=== PATIENT | female | born 1970 | race African-American/Black ===

== ENCOUNTER 2016-05-13 10:41 | Inpatient (IN) | payer OTHER ==
[2016-05-13 11:36] VITALS: BMI 31.4
--- NOTE | 2016-05-13 13:48 | HP ---
CIWA Score - CIWA Score Nausea/Vomitin (DIARHEA) Muscle Tremors: 4-Moderate,w/Arms Extend Anxiety: 4-Mod. Anxious/Guarded Agitation: 4-Moderately Restless Paroxysmal Sweats: 1-Minimal Palms Moist Orientation: 0-Oriented Tacttile Disturbances: 3-Moderate Itch/Numb/Burn Auditory Disturbances: 0-None Visual Disturbances: 0-None Headache: 1-Very Mild CIWA-Ar Total Score: 22 Admission ROS BHS - HPI Chief Complaint: DETOX TX FOR ALCOHOL DEPENDENCE Allergies/Adverse Reactions: Allergies Allergy/AdvReac Type Severity Reaction Status Date / Time No Known Allergies Allergy Verified 05/13/16 12:43 History of Present Illness: 45 Y/O AA/FEMALE WITH A HX OF ALCOHOL AND CACK/COCAINE DEPENDENCE SEEKING DETOX TX Exam Limitations: No Limitations - Ebola screening Have you traveled outside of the country in the last 21 days: No Have you had contact with anyone from an Ebola affected area: No Have you been sick,other than usual withdrawal symptoms: No Do you have a fever: No - Review of Systems Constitutional: Chills, Loss of Appetite, Night Sweats, Changes in sleep EENT: reports: Blurred Vision, Dental Problems (MISSING TEETH. UPPER DENTURES) Respiratory: reports: Shortness of Breath, Wheezing (ON MDI) GI: reports: Diarrhea, Poor Appetite, Poor Fluid Intake : reports: No Symptoms Reported Musculoskeletal: reports: Back Pain, Joint Pain, Muscle Pain Integumentary: reports: Dryness Neuro: reports: Headache, Tremors, Unsteady Gait, Dizziness Endocrine: reports: No Symptoms Reported Hematology: reports: Anemia Psychiatric: reports: Orientated x3, Anxious, Depressed Other Systems: Reviewed and Negative Patient History - Patient Medical History Hx Anemia: Yes Hx Asthma: Yes Hx Chronic Obstructive Pulmonary Disease (COPD): No Hx Cardiac Disorders: No Hx Hypertension: No Hx Hypercholesterolemia: No HX Cerebrovascular Accident: No Hx Seizures: No Hx Diabetes: Yes (Type II DM-ON METFORMIN AND GLYBURIDE) Hx Gastrointestinal Disorders: No Hx Genitourinary Disorders: No Hx Sexually Transmitted Disorders: No Hx Renal Disease (ESRD): No Hx Human Immunodeficiency Virus (HIV): No Hx Hepatitis C: No Hx Depression: Yes Hx Suicide Attempt: No Hx Schizophrenia: No - Patient Surgical History Past Surgical History: Yes Hx Neurologic Surgery: No Hx Cataract Extraction: No Hx Cardiac Surgery: No Hx Lung Surgery: No Hx Breast Surgery: No Hx Breast Biopsy: No Hx Abdominal Surgery: No Hx Appendectomy: No Hx Cholecystectomy: No Hx Genitourinary Surgery: No Hx Section: Yes (IN 2000) Hx Orthopedic Surgery: No Hx Hysterectomy: Yes (1999, total) Other Surgical History: L shoulder sx in 2012 Anesthesia Reaction: No - PPD History Previous Implant?: Yes Documented Results: Negative w/o proof Implanted On Prior [facility] Admission?: No Date: 07/06/11 PPD to be Administered?: Yes - Reproductive History Patient is a Female of Child Bearing Age (11 -55 yrs old): Yes (HX HYSTERECTOMY 2000) Last Menstrual Period: 03/25/00 Patient : No - Smoking Cessation Smoking history: Current every day smoker Have you smoked in the past 12 months: Yes Aproximately how many cigarettes per day: 20 Cigars Per Day: 0 Hx Chewing Tobacco Use: No Initiated information on smoking cessation: Yes 'Breaking Loose' booklet given: 05/13/16 - Substance & Tx. History Hx Alcohol Use: Yes (VODKA) Hx Substance Use: Yes (CRACK) Substance Use Type: Alcohol, Cocaine - Substances Abused Alcohol Route: Oral Frequency: Daily Amount used: FIFTH OF VODKA Age of first use: 16 Date of Last Use: 05/13/16 Crack Route: Smoking Frequency: Daily Amount used: $50-100 Age of first use: 32 Date of Last Use: 05/13/16 Family Disease History - Family Disease History Family History: Denies Admission Physical Exam BHS - Vital Signs Vital Signs: Vital Signs - 24 hr 05/13/16 11:34 Temperature 97.3 F L Pulse Rate 87 Respiratory 18 Rate Blood Pressure 130/71 - Physical General Appearance: Yes: Moderate Distress, Irritable, Anxious, Other (DROWSY BUT EASILY AROUSABLE.) HEENTM: Yes: EOMI, Normocephalic, DAVID, Pharynx Normal Respiratory: Yes: Chest Non-Tender, Lungs Clear, Normal Breath Sounds, No Respiratory Distress Neck: Yes: Supple, Trachea in good position Breast: Yes: Breast Exam Deferred Cardiology: Yes: Regular Rhythm, Regular Rate, S1, S2 Abdominal: Yes: Normal Bowel Sounds, Non Tender, Soft, Protuberent Genitourinary: Yes: Other (N/C) Back: Yes: Within Normal Limits Musculoskeletal: Yes: full range of Motion, Gait Steady Extremities: Yes: Normal Range of Motion, Non-Tender 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 NML intact, Fully Oriented, Alert Integumentary: Yes: Dry, Warm Lymphatic: Yes: Within Normal Limits - Diagnostic (1) Alcohol dependence with uncomplicated withdrawal Current Visit: Yes Status: Acute (2) Cocaine dependence, uncomplicated Current Visit: Yes Status: Acute (3) Type 2 diabetes mellitus Current Visit: Yes Status: Chronic Qualifiers: Diabetes mellitus complication status: without complication (4) History of anemia Current Visit: Yes Status: Suspected (5) History of asthma Current Visit: Yes Status: Chronic Cleared for Admission [facility] - Detox or Rehab [facility] Level of Care: Medically Managed Detox Regimen/Protocol: Librium [facility] Breath Alcohol Content Breath Alcohol Content: 0 Urine Pregancy Test - Result Urine Test Results: Negative- NO Line Present Urine Drug Screen - Results Drug Screen Negative: No Urine Drug Screen Results: MADHAV-Cocaine
[2016-05-13] MEDS ORDERED: MAG HYDROX/AL HYDROX/SIMETH 30 ML UNIT-DOSE CUP PO PRN (14:01)
[2016-05-13] MEDS ORDERED: LOPERAMIDE HCL 2 MG CAPSULE PO PRN (14:01)
[2016-05-13] MEDS ORDERED: MAGNESIUM HYDROX 2400MG/30ML ORAL SUSPENSION 30 ML CUP PO PRN (14:01)
[2016-05-13] MEDS ORDERED: chlordiazePOXIDE HCL 25 MG CAPSULE PO PRN (14:01)
[2016-05-13] MEDS ORDERED: MAGNESIUM CITRATE 300 ML BOTTLE PO PRN (14:01)
[2016-05-13] MEDS ORDERED: P-EPHED 60MG/TRIPROLIDI 2.5MG TABLET PO PRN (14:01)
[2016-05-13] MEDS ORDERED: hydrOXYzine PAMOATE 25 MG CAPSULE (FP) PO PRN (14:01)
[2016-05-13] MEDS ORDERED: guaiFENesin/D-METHORPHAN HB 10 ML UNIT-DOSE CUPS PO PRN (14:01)
[2016-05-13] MEDS ORDERED: MENTHOL/PHENOL 1 EACH UD MM PRN (14:01)
[2016-05-13] MEDS ORDERED: IBUPROFEN 400 MG TABLET (FP) PO PRN (14:01)
[2016-05-13] MEDS ORDERED: diphenhydrAMINE HCL 50 MG CAPSULE PO PRN (14:01)
[2016-05-13] MEDS ORDERED: ACETAMINOPHEN 325 MG TABLET (FP) PO PRN (14:01)
[2016-05-13 14:17] LABS: HIV 1 & 2 AB NEGATIVE; HIV 1 AGp24 NEGATIVE
[2016-05-13] MEDS: NICOTINE 21 MG/24 HOURS TOPICAL PATCH TD SCH (14:37)
[2016-05-13 16:53] LABS: URINE APPEARANCE CLOUDY; URINE BILIRUBIN NEGATIVE (NEGATIVE); URINE COLOR YELLOW; URINE GLUCOSE (UA) 3+ (NEGATIVE); URINE KETONE TRACE (NEGATIVE); URINE NITRITE POSITIVE (NEGATIVE); URINE PROTEIN NEGATIVE (NEGATIVE); URINE UROBILINOGEN NEGATIVE E.U./dl (0.2-1.0)
[2016-05-13] MEDS: INSULIN SLIDING SCALE (NOVOLOG) 1 VIAL SQ SCH (16:54)
[2016-05-13] MEDS ORDERED: INSULIN (NOVOLOG) ASPART 100 UNITS/ML 10ML VIAL ONE (16:57)
[2016-05-13] MEDS: metFORMIN HCL 500 MG TABLET (FP) PO SCH (16:58)
[2016-05-13 17:33] LABS: URINE BLOOD 1+ (NEGATIVE); URINE LEUK ESTERASE 2+ (NEGATIVE)
[2016-05-13 17:44] LABS: URINE BACTERIA MANY /hpf (NONE SEEN); URINE MUCUS FEW; URINE RBC 18 /hpf (0-3); URINE WBC 32 /hpf (3-5)
[2016-05-13] MEDS: chlordiazePOXIDE HCL 25 MG CAPSULE PO SCH ×2 (17:53→22:39)
[2016-05-13] MEDS: THIAMINE HCL 100 MG TABLET (FP) PO SCH (22:10)
[2016-05-14] MEDS: chlordiazePOXIDE HCL 25 MG CAPSULE PO SCH ×4 (05:35→22:26)
[2016-05-14] MEDS: metFORMIN HCL 500 MG TABLET (FP) PO SCH ×2 (07:24→17:32)
[2016-05-14] MEDS: INSULIN SLIDING SCALE (NOVOLOG) 1 VIAL SQ SCH ×2 (07:24→17:30)
[2016-05-14 10:10] LABS: MCH 30.7 pg (25.7-33.7); MCHC 33.3 g/dl (32.0-36.0); MEAN CELL VOLUME 92.1 fl (80-96); PLATELET COUNT 265 K/MM3 (134-434)
[2016-05-14] MEDS: PRENATAL VITAMINS W/ FOLIC ACID TABLET (FP) PO SCH (10:20)
[2016-05-14] MEDS: NICOTINE 21 MG/24 HOURS TOPICAL PATCH TD SCH (10:20)
[2016-05-14] MEDS: glyBURIDE 2.5 MG TABLET (FP) PO SCH (10:21)
[2016-05-14 11:04] LABS: BILIRUBIN,TOTAL 0.3 mg/dL (0.2-1.0); TOT PROT 7.4 g/dl (6.4-8.2)
[2016-05-14 11:41] LABS: SICKLE CELL SCREEN NEGATIVE (NEGATIVE)
--- NOTE | 2016-05-14 16:12 | EKG ---
Test Reason : Blood Pressure : / mmHG Vent. Rate : 080 BPM Atrial Rate : 080 BPM P-R Int : 170 ms QRS Dur : 088 ms QT Int : 400 ms P-R-T Axes : 052 000 007 degrees QTc Int : 461 ms NORMAL SINUS RHYTHM VOLTAGE CRITERIA FOR LEFT VENTRICULAR HYPERTROPHY CANNOT RULE OUT SEPTAL INFARCT , AGE UNDETERMINED ABNORMAL ECG NO PREVIOUS ECGS AVAILABLE Confirmed by REGINE OLSEN MD ([id number]) on 05/14/2016 4:12:32 PM Referred By: Confirmed By:REGINE OLSEN MD
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
--- NOTE | 2016-05-14 20:02 | PN ---
S Progress Note Note: received nurse call finger stick 92 patient wants to skip dinner hold metformin 1000 mg one dose continue detox
--- NOTE | 2016-05-14 21:46 | PN ---
BHS Progress Note Note: RECEIVED NURSE CALL PATIENT REQUESTS NICOTINE GUM NICOTINE GUM ORDERED CONTINUE DETOX
[2016-05-14] MEDS: THIAMINE HCL 100 MG TABLET (FP) PO SCH (22:23)
[2016-05-14] MEDS: traZODone HCL 100 MG TABLET (FP) PO SCH (22:24)
[2016-05-14] MEDS: GABAPENTIN 300 MG CAPSULE (FP) PO SCH (22:24)
[2016-05-15] MEDS ORDERED: INSULIN (NOVOLOG) ASPART 100 UNITS/ML 10ML VIAL ONE (06:33)
[2016-05-15] MEDS: metFORMIN HCL 500 MG TABLET (FP) PO SCH ×2 (06:36→16:57)
[2016-05-15] MEDS: INSULIN SLIDING SCALE (NOVOLOG) 1 VIAL SQ SCH ×2 (06:36→16:45)
[2016-05-15] MEDS: glyBURIDE 2.5 MG TABLET (FP) PO SCH (06:36)
[2016-05-15] MEDS: chlordiazePOXIDE HCL 25 MG CAPSULE PO SCH ×2 (06:46→10:15)
[2016-05-15] MEDS: PRENATAL VITAMINS W/ FOLIC ACID TABLET (FP) PO SCH (10:15)
[2016-05-15] MEDS: GABAPENTIN 300 MG CAPSULE (FP) PO SCH ×2 (10:15→22:24)
--- NOTE | 2016-05-15 10:37 | PN ---
[facility] CIWA - CIWA Score Nausea/Vomitin-No Nausea/No Vomiting Muscle Tremors: 3 Anxiety: 3 Agitation: 3 Paroxysmal Sweats: 3 Orientation: 0-Oriented Tacttile Disturbances: 0-None Auditory Disturbances: 0-None Visual Disturbances: 0-None Headache: 0-None Present CIWA-Ar Total Score: 12 S Progress Note (SOAP) Subjective: shakes sweats sleepy interrupted sleep Objective: 05/15/16 10:34 Vital Signs Temperature 97.5 F L 05/15/16 09:43 Pulse Rate 86 05/15/16 09:43 Respiratory Rate 16 05/15/16 09:43 Blood Pressure 132/92 05/15/16 09:43 O2 Sat by Pulse Oximetry (%) Laboratory Tests 05/13/16 05/13/16 05/13/16 12:50 12:56 14:00 WBC RBC Hgb Hct MCV MCHC RDW Plt Count MPV Sickle Cell Screen Sodium Potassium Chloride Carbon Dioxide Anion Gap BUN Creatinine Creat Clearance w eGFR POC Glucometer 223 Random Glucose Calcium Total Bilirubin AST ALT Alkaline Phosphatase Total Protein Albumin Urine Color Yellow Urine Appearance Cloudy Urine pH 5.0 Ur Specific [place] 1.026 Urine Protein Negative Urine Glucose (UA) 3+ H D Urine Ketones Trace H Urine Blood 1+ H Urine Nitrite Positive Urine Bilirubin Negative Urine Urobilinogen Negative Ur Leukocyte Esterase 2+ H Urine RBC 18 Urine WBC 32 Ur Epithelial Cells Many Urine Bacteria Many Urine Mucus Few RPR Titer HIV 1&2 Antibody Screen Negative HIV P24 Antigen Negative 05/13/16 05/14/16 05/14/16 16:50 05:37 06:20 WBC 7.0 RBC 4.36 Hgb 13.4 Hct 40.1 MCV 92.1 MCHC 33.3 RDW 14.0 Plt Count 265 MPV 10.0 Sickle Cell Screen Negative Sodium Potassium Chloride Carbon Dioxide Anion Gap BUN Creatinine Creat Clearance w eGFR POC Glucometer 212 174 Random Glucose Calcium Total Bilirubin AST ALT Alkaline Phosphatase Total Protein Albumin Urine Color Urine Appearance Urine pH Ur Specific [place] Urine Protein Urine Glucose (UA) Urine Ketones Urine Blood Urine Nitrite Urine Bilirubin Urine Urobilinogen Ur Leukocyte Esterase Urine RBC Urine WBC Ur Epithelial Cells Urine Bacteria Urine Mucus RPR Titer HIV 1&2 Antibody Screen HIV P24 Antigen 05/14/16 05/14/16 05/14/16 06:20 06:20 16:25 WBC RBC Hgb Hct MCV MCHC RDW Plt Count MPV Sickle Cell Screen Sodium 142 Potassium 3.5 Chloride 105 Carbon Dioxide 26 Anion Gap 11 BUN 15 D Creatinine 1.0 D Creat Clearance w eGFR 59.96 POC Glucometer 92 Random Glucose 167 H D Calcium 9.0 Total Bilirubin 0.3 D AST 11 L D ALT 20 Alkaline Phosphatase 76 D Total Protein 7.4 Albumin 4.0 Urine Color Urine Appearance Urine pH Ur Specific [place] Urine Protein Urine Glucose (UA) Urine Ketones Urine Blood Urine Nitrite Urine Bilirubin Urine Urobilinogen Ur Leukocyte Esterase Urine RBC Urine WBC Ur Epithelial Cells Urine Bacteria Urine Mucus RPR Titer Nonreactive HIV 1&2 Antibody Screen HIV P24 Antigen repeat u/a awake/alert ambulating no acute distress Assessment: 05/15/16 10:35 withdrawal sx Plan: continue detox increase fluids repeat u/a
[2016-05-15] MEDS: NICOTINE 21 MG/24 HOURS TOPICAL PATCH TD SCH (11:56)
[2016-05-15] MEDS: chlordiazePOXIDE 5 MG CAPSULE PO SCH ×2 (16:57→22:24)
[2016-05-15] MEDS: THIAMINE HCL 100 MG TABLET (FP) PO SCH (22:24)
[2016-05-15] MEDS: traZODone HCL 100 MG TABLET (FP) PO SCH (22:24)
[2016-05-16] MEDS: chlordiazePOXIDE 5 MG CAPSULE PO SCH ×2 (06:18→10:12)
[2016-05-16] MEDS: metFORMIN HCL 500 MG TABLET (FP) PO SCH ×2 (06:21→17:18)
[2016-05-16] MEDS: glyBURIDE 2.5 MG TABLET (FP) PO SCH (06:22)
[2016-05-16] MEDS ORDERED: INSULIN (NOVOLOG) ASPART 100 UNITS/ML 10ML VIAL ONE (06:46)
[2016-05-16] MEDS: INSULIN SLIDING SCALE (NOVOLOG) 1 VIAL SQ SCH ×2 (07:21→16:49)
[2016-05-16] MEDS: PRENATAL VITAMINS W/ FOLIC ACID TABLET (FP) PO SCH (10:12)
[2016-05-16] MEDS: GABAPENTIN 300 MG CAPSULE (FP) PO SCH ×2 (10:12→22:32)
[2016-05-16] MEDS: NICOTINE 21 MG/24 HOURS TOPICAL PATCH TD SCH (10:13)
[2016-05-16] MEDS: NICOTINE POLACRILEX 4 MG GUM BUC PRN ×3 (10:28→22:32)
--- NOTE | 2016-05-16 16:02 | PN ---
S CIWA - CIWA Score Nausea/Vomitin Muscle Tremors: 4-Moderate,w/Arms Extend Anxiety: 2 Agitation: 3 Paroxysmal Sweats: 3 Orientation: 0-Oriented Tacttile Disturbances: 1-Very Mild Itch/Numbness Auditory Disturbances: 0-None Visual Disturbances: 2-Mild Sensitivity Headache: 3-Moderate CIWA-Ar Total Score: 20 BHS Progress Note (SOAP) Subjective: Tremors, Back Ache, Diarrhea, Tremors, Sweating. Objective: PT. A & O X 3, OBSERVED AMBULATING ON UNIT. 05/16/16 16:09 Vital Signs Temperature 98.1 F 05/16/16 14:36 Pulse Rate 87 05/16/16 14:36 Respiratory Rate 16 05/16/16 14:36 Blood Pressure 121/81 05/16/16 14:36 O2 Sat by Pulse Oximetry (%) Laboratory Last Values WBC 7.0 K/mm3 (4.0-10.0) 05/14/16 06:20 RBC 4.36 M/mm3 (3.60-5.2) 05/14/16 06:20 Hgb 13.4 GM/dL (10.7-15.3) 05/14/16 06:20 Hct 40.1 % (32.4-45.2) 05/14/16 06:20 MCV 92.1 fl (80-96) 05/14/16 06:20 MCHC 33.3 g/dl (32.0-36.0) 05/14/16 06:20 RDW 14.0 % (11.6-15.6) 05/14/16 06:20 Plt Count 265 K/MM3 (134-434) 05/14/16 06:20 MPV 10.0 fl (7.5-11.1) 05/14/16 06:20 Sickle Cell Screen Negative (NEGATIVE) 05/14/16 06:20 Sodium 142 mmol/L (136-145) 05/14/16 06:20 Potassium 3.5 mmol/L (3.5-5.1) 05/14/16 06:20 Chloride 105 mmol/L (98-107) 05/14/16 06:20 Carbon Dioxide 26 mmol/L (21-32) 05/14/16 06:20 Anion Gap 11 (8-16) 05/14/16 06:20 BUN 15 mg/dL (7-18) D 05/14/16 06:20 Creatinine 1.0 mg/dL (0.55-1.02) D 05/14/16 06:20 Creat Clearance w eGFR 59.96 (>60) 05/14/16 06:20 POC Glucometer 288 UNITS (()) 05/16/16 06:19 Random Glucose 167 mg/dL (74-106) H D 05/14/16 06:20 Calcium 9.0 mg/dL (8.5-10.1) 05/14/16 06:20 Total Bilirubin 0.3 mg/dL (0.2-1.0) D 05/14/16 06:20 AST 11 U/L (15-37) L D 05/14/16 06:20 ALT 20 U/L (12-78) 05/14/16 06:20 Alkaline Phosphatase 76 U/L (45-117) D 05/14/16 06:20 Total Protein 7.4 g/dl (6.4-8.2) 05/14/16 06:20 Albumin 4.0 g/dl (3.4-5.0) 05/14/16 06:20 Urine Color Yellow 05/13/16 14:00 Urine Appearance Cloudy 05/13/16 14:00 Urine pH 5.0 (5.0-8.0) 05/13/16 14:00 Ur Specific [place] 1.026 (1.001-1.035) 05/13/16 14:00 Urine Protein Negative (NEGATIVE) 05/13/16 14:00 Urine Glucose (UA) 3+ (NEGATIVE) H D 05/13/16 14:00 Urine Ketones Trace (NEGATIVE) H 05/13/16 14:00 Urine Blood 1+ (NEGATIVE) H 05/13/16 14:00 Urine Nitrite Positive (NEGATIVE) 05/13/16 14:00 Urine Bilirubin Negative (NEGATIVE) 05/13/16 14:00 Urine Urobilinogen Negative E.U./dl (0.2-1.0) 05/13/16 14:00 Ur Leukocyte Esterase 2+ (NEGATIVE) H 05/13/16 14:00 Urine RBC 18 /hpf (0-3) 05/13/16 14:00 Urine WBC 32 /hpf (3-5) 05/13/16 14:00 Ur Epithelial Cells Many /hpf (FEW) 05/13/16 14:00 Urine Bacteria Many /hpf (NONE SEEN) 05/13/16 14:00 Urine Mucus Few 05/13/16 14:00 RPR Titer Nonreactive (NONREACTIVE) 05/14/16 06:20 HIV 1&2 Antibody Screen Negative 05/13/16 12:50 HIV P24 Antigen Negative 05/13/16 12:50 LABS NOTED. Assessment: 05/16/16 16:10 WITHDRAWAL SYMPTOMS. Plan: CONTINUE DETOX. ADVISED PATIENT TO FOLLOW-UP WITH [facility] DRIER OPERATOR / REHAB MEDICAL PROVIDER AFTER DISCHARGE FROM DETOX FOR GENERAL MEDICAL ASSESSMENT AND FOR ABNORMAL ADMISSION LAB VALUES.
[2016-05-16] MEDS: chlordiazePOXIDE HCL 10 MG CAPSULE PO SCH ×2 (17:18→22:31)
[2016-05-16] MEDS: THIAMINE HCL 100 MG TABLET (FP) PO SCH (22:32)
[2016-05-16] MEDS: traZODone HCL 100 MG TABLET (FP) PO SCH (22:32)
[2016-05-17] MEDS: metFORMIN HCL 500 MG TABLET (FP) PO SCH (06:19)
[2016-05-17] MEDS: glyBURIDE 2.5 MG TABLET (FP) PO SCH (06:19)
[2016-05-17] MEDS: chlordiazePOXIDE HCL 10 MG CAPSULE PO SCH (06:19)
[2016-05-17 06:58] VITALS: BP 118/76; PULSE 74; TEMP 97.7
[2016-05-17] MEDS: INSULIN SLIDING SCALE (NOVOLOG) 1 VIAL SQ SCH (06:58)
[2016-05-17] MEDS: GABAPENTIN 300 MG CAPSULE (FP) PO SCH (09:37)
--- NOTE | 2016-05-17 11:02 | DS ---
[facility] Detox Discharge Summary Admission Date: 05/13/16 Discharge Date: 05/17/16 - History Present History: Alcohol Dependence, Cocaine Dependence Pertinent Past History: Anemia, DM, depression, asthma, PTSD - Physical Exam Results Vital Signs: Vital Signs Temperature 97.7 F 05/17/16 06:00 Pulse Rate 74 05/17/16 06:00 Respiratory Rate 18 05/17/16 06:00 Blood Pressure 118/76 05/17/16 06:00 O2 Sat by Pulse Oximetry (%) Pertinent Admission Physical Exam Findings: withdrawal sx Laboratory Last Values WBC 7.0 K/mm3 (4.0-10.0) 05/14/16 06:20 RBC 4.36 M/mm3 (3.60-5.2) 05/14/16 06:20 Hgb 13.4 GM/dL (10.7-15.3) 05/14/16 06:20 Hct 40.1 % (32.4-45.2) 05/14/16 06:20 MCV 92.1 fl (80-96) 05/14/16 06:20 MCHC 33.3 g/dl (32.0-36.0) 05/14/16 06:20 RDW 14.0 % (11.6-15.6) 05/14/16 06:20 Plt Count 265 K/MM3 (134-434) 05/14/16 06:20 MPV 10.0 fl (7.5-11.1) 05/14/16 06:20 Sickle Cell Screen Negative (NEGATIVE) 05/14/16 06:20 Sodium 142 mmol/L (136-145) 05/14/16 06:20 Potassium 3.5 mmol/L (3.5-5.1) 05/14/16 06:20 Chloride 105 mmol/L (98-107) 05/14/16 06:20 Carbon Dioxide 26 mmol/L (21-32) 05/14/16 06:20 Anion Gap 11 (8-16) 05/14/16 06:20 BUN 15 mg/dL (7-18) D 05/14/16 06:20 Creatinine 1.0 mg/dL (0.55-1.02) D 05/14/16 06:20 Creat Clearance w eGFR 59.96 (>60) 05/14/16 06:20 POC Glucometer 165 UNITS (()) 05/17/16 06:20 Random Glucose 167 mg/dL (74-106) H D 05/14/16 06:20 Calcium 9.0 mg/dL (8.5-10.1) 05/14/16 06:20 Total Bilirubin 0.3 mg/dL (0.2-1.0) D 05/14/16 06:20 AST 11 U/L (15-37) L D 05/14/16 06:20 ALT 20 U/L (12-78) 05/14/16 06:20 Alkaline Phosphatase 76 U/L (45-117) D 05/14/16 06:20 Total Protein 7.4 g/dl (6.4-8.2) 05/14/16 06:20 Albumin 4.0 g/dl (3.4-5.0) 05/14/16 06:20 Urine Color Yellow 05/13/16 14:00 Urine Appearance Cloudy 05/13/16 14:00 Urine pH 5.0 (5.0-8.0) 05/13/16 14:00 Ur Specific [place] 1.026 (1.001-1.035) 05/13/16 14:00 Urine Protein Negative (NEGATIVE) 05/13/16 14:00 Urine Glucose (UA) 3+ (NEGATIVE) H D 05/13/16 14:00 Urine Ketones Trace (NEGATIVE) H 05/13/16 14:00 Urine Blood 1+ (NEGATIVE) H 05/13/16 14:00 Urine Nitrite Positive (NEGATIVE) 05/13/16 14:00 Urine Bilirubin Negative (NEGATIVE) 05/13/16 14:00 Urine Urobilinogen Negative E.U./dl (0.2-1.0) 05/13/16 14:00 Ur Leukocyte Esterase 2+ (NEGATIVE) H 05/13/16 14:00 Urine RBC 18 /hpf (0-3) 05/13/16 14:00 Urine WBC 32 /hpf (3-5) 05/13/16 14:00 Ur Epithelial Cells Many /hpf (FEW) 05/13/16 14:00 Urine Bacteria Many /hpf (NONE SEEN) 05/13/16 14:00 Urine Mucus Few 05/13/16 14:00 RPR Titer Nonreactive (NONREACTIVE) 05/14/16 06:20 HIV 1&2 Antibody Screen Negative 05/13/16 12:50 HIV P24 Antigen Negative 05/13/16 12:50 Labs noted - Treatment Hospital Course: Detox Protocol Followed, Detoxed Safely, Responded well, Discharged Condition Good - Medication Discharge Medications: Ambulatory Orders Buspirone HCl [Buspar -] 30 mg PO BID 05/13/16 Clonidine HCl [Catapres -] 0.2 mg PO DAILY 05/13/16 Gabapentin [Neurontin -] 600 mg PO BID 05/13/16 Glyburide [Diabeta -] 2.5 mg PO DAILY@0700 05/13/16 Metformin HCl [Glucophage] 1,000 mg PO BID 05/13/16 Trazodone HCl [Desyrel -] 200 mg PO HS 05/13/16 Buspirone HCl [Buspar -] 30 mg PO BID #60 tablet 05/14/16 Trazodone HCl 200 mg PO HS #60 tablet 05/14/16 - Diagnosis (1) Alcohol dependence with uncomplicated withdrawal Status: Acute (2) Cocaine dependence, uncomplicated Status: Acute (3) Substance induced mood disorder Status: Acute (4) Depressive disorder Status: Chronic (5) History of asthma Status: Chronic (6) Type 2 diabetes mellitus Status: Chronic Qualifiers: Diabetes mellitus complication status: without complication (7) History of anemia Status: Chronic (8) Post traumatic stress disorder (PTSD) Status: Chronic - AMA Did Patient Leave Against Medical Advice: No
== END 2016-05-17 10:01 | disposition home or self-care (01) | DRG 774 ==
LOC: YASAS 10:41 → Y6N 13:31
PROVIDERS: ADMIT Internal Medicine Addiction Medicine; ATTEND Internal Medicine Addiction Medicine
PROC: HZ2ZZZZ Detoxification Services for Substance Abuse Treatment (ICD-10-PCS; principal; 2016-05-13)
DX: F10.230 Alcohol dependence with withdrawal, uncomplicated (principal); F14.20 Cocaine dependence, uncomplicated; F17.210 Nicotine dependence, cigarettes, uncomplicated; F19.24 Other psychoactive substance dependence with psychoactive substance-induced mood disorder; F32.9 Major depressive disorder, single episode, unspecified; F43.10 Post-traumatic stress disorder, unspecified; E11.9 Type 2 diabetes mellitus without complications; J45.909 Unspecified asthma, uncomplicated; G47.00 Insomnia, unspecified; Z87.09 Personal history of other diseases of the respiratory system
CPT/HCPCS: 36415; 80053; 81003; 81015; 85027; 85660; 86593; 87389; 93005; 93010

== ENCOUNTER 2016-11-11 11:08 | Inpatient (IN) | payer OTHER ==
[2016-11-11 11:56] VITALS: BMI 33.6
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
[2016-11-11] MEDS ORDERED: P-EPHED 60MG/TRIPROLIDI 2.5MG TABLET PO PRN (14:27)
[2016-11-11] MEDS ORDERED: IBUPROFEN 400 MG TABLET (FP) PO PRN (14:27)
[2016-11-11] MEDS ORDERED: NICOTINE POLACRILEX 2 MG GUM BUC PRN (14:27)
[2016-11-11] MEDS ORDERED: guaiFENesin/D-METHORPHAN HB 10 ML UNIT-DOSE CUPS PO PRN (14:27)
[2016-11-11] MEDS ORDERED: MAG HYDROX/AL HYDROX/SIMETH 30 ML UNIT-DOSE CUP PO PRN (14:27)
[2016-11-11] MEDS ORDERED: ACETAMINOPHEN 325 MG TABLET (FP) PO PRN (14:27)
[2016-11-11] MEDS ORDERED: MAGNESIUM CITRATE 300 ML BOTTLE PO PRN (14:27)
[2016-11-11] MEDS ORDERED: chlordiazePOXIDE HCL 25 MG CAPSULE PO PRN (14:27)
[2016-11-11] MEDS ORDERED: diphenhydrAMINE HCL 50 MG CAPSULE PO PRN (14:27)
[2016-11-11] MEDS ORDERED: MENTHOL/PHENOL 1 EACH UD MM PRN (14:27)
[2016-11-11] MEDS ORDERED: LOPERAMIDE HCL 2 MG CAPSULE PO PRN (14:27)
[2016-11-11] MEDS ORDERED: hydrOXYzine PAMOATE 25 MG CAPSULE (FP) PO PRN (14:27)
[2016-11-11] MEDS ORDERED: MAGNESIUM HYDROX 2400MG/30ML ORAL SUSPENSION 30 ML CUP PO PRN (14:27)
[2016-11-11] MEDS ORDERED: ALBUTEROL SO4 6.7 GM HFA INHALER IH PRN (14:32)
[2016-11-11] MEDS ORDERED: chlordiazePOXIDE HCL 25 MG CAPSULE PO ONE (15:30)
[2016-11-11] MEDS: GABAPENTIN 100 MG CAPSULE (FP) PO SCH ×2 (16:00→22:20)
[2016-11-11] MEDS: NICOTINE 21 MG/24 HOURS TOPICAL PATCH TD SCH (16:02)
[2016-11-11] MEDS ORDERED: INSULIN (NOVOLOG) ASPART 100 UNITS/ML 10ML VIAL ONE (16:47)
[2016-11-11] MEDS: metFORMIN HCL 500 MG TABLET (FP) PO SCH (16:52)
[2016-11-11] MEDS: INSULIN (NOVOLOG) ASPART 100 UNITS/ML 10ML VIAL SQ SCH (16:55)
[2016-11-11] MEDS: chlordiazePOXIDE HCL 25 MG CAPSULE PO SCH ×2 (17:48→22:20)
[2016-11-11 17:50] LABS: URINE APPEARANCE CLOUDY; URINE BILIRUBIN NEGATIVE (NEGATIVE); URINE BLOOD NEGATIVE (NEGATIVE); URINE COLOR YELLOW; URINE GLUCOSE (UA) NEGATIVE (NEGATIVE); URINE KETONE NEGATIVE (NEGATIVE); URINE LEUK ESTERASE NEGATIVE (NEGATIVE); URINE NITRITE NEGATIVE (NEGATIVE); URINE PROTEIN NEGATIVE (NEGATIVE); URINE UROBILINOGEN NEGATIVE mg/dL (0.2-1.0)
[2016-11-11] MEDS: ATORVASTATIN CA 10 MG TABLET (FP) PO SCH (22:20)
[2016-11-11] MEDS: THIAMINE HCL 100 MG TABLET (FP) PO SCH (22:20)
[2016-11-11] MEDS: cloNIDine HCL 0.1 MG TABLET PO SCH (22:20)
[2016-11-12] MEDS: chlordiazePOXIDE HCL 25 MG CAPSULE PO SCH ×4 (05:40→23:11)
[2016-11-12] MEDS: GABAPENTIN 100 MG CAPSULE (FP) PO SCH ×3 (05:43→22:20)
[2016-11-12] MEDS: metFORMIN HCL 500 MG TABLET (FP) PO SCH ×2 (07:00→17:25)
--- NOTE | 2016-11-12 07:34 | CONSULT ---
[facility] Psychiatric Consult - Data Date of interview: 11/12/16 Admission source: [facility] Identifying data: This is 46 years old female with psychiatric hospitalization history intoxicated with: Cocaine, Cannabis, Nicotine, Alcohol Substance Abuse History: - Results. Drug Screen Negative: No. Urine Drug Screen Results: THC-Marijuana, MADHAV-Cocaine. - Smoking Cessation. Smoking history: Current every day smoker. Have you smoked in the past 12 months: Yes. Aproximately how many cigarettes per day: 20. Cigars Per Day: 0. Hx Chewing Tobacco Use: No. Initiated information on smoking cessation: Yes Medical History: Hypercholesterolemia, HTN, aSTHMA aNEMIA, dm-2 Psychiatric History: Patient reports history of Bipolar disorder with most recent psychiatric admission pn: 2012, reports currently taking : Buspar 15mg po bid. Trazodone 300mg po qhs Physical/Sexual Abuse/Trauma History: Denies Additional Comment: - Results. Drug Screen Negative: No. Urine Drug Screen Results: THC-Marijuana, MADHAV-Cocaine Mental Status Exam - Mental Status Exam Alert and Oriented to: Person Cognitive Function: Fair Patient Appearance: Unkempt Mood: Sad Affect: Flat Patient Behavior: Sedated Speech Pattern: Delayed Voice Loudness: Mildly Soft/Quiet Thought Process: Circumstantial Thought Disorder: Being Controlled Hallucinations: Denies Suicidal Ideation: Denies Homicidal Ideation: Denies Insight/Judgement: Fair Sleep: Difficulty falling asleep Appetite: Weight gain Muscle strength/Tone: Mild Hypotonicity Gait/Station: Shuffling Additional Comments: Buspar 15mg po bid. Trazodone 300mg po qhs Psychiatric Findings - Problem List ([place] 1, 2,3) (1) Bipolar disorder Current Visit: Yes Status: Acute (2) Alcohol dependence with uncomplicated withdrawal Current Visit: No Status: Acute (3) Cocaine dependence, uncomplicated Current Visit: No Status: Acute (4) Substance induced mood disorder Current Visit: No Status: Acute (5) Depressive disorder Current Visit: No Status: Chronic (6) Post traumatic stress disorder (PTSD) Current Visit: No Status: Chronic - Initial Treatment Plan Initial Treatment Plan: Buspar 15mg po bid. Trazodone 300mg po qhs
[2016-11-12] MEDS: INSULIN (NOVOLOG) ASPART 100 UNITS/ML 10ML VIAL SQ SCH ×3 (08:14→17:25)
[2016-11-12 10:03] LABS: MCH 29.8 pg (25.7-33.7); MCHC 32.8 g/dl (32.0-36.0); MEAN CELL VOLUME 90.8 fl (80-96); MEAN PLT VOLUME 10.6 fl (7.5-11.1); PLATELET COUNT 294 K/MM3 (134-434); RDW 14.9 % (11.6-15.6); WHITE BLOOD COUNT 7.4 K/mm3 (4.0-10.0)
[2016-11-12] MEDS: glyBURIDE 2.5 MG TABLET (FP) PO SCH (10:28)
[2016-11-12] MEDS: PRENATAL VITAMINS W/ FOLIC ACID TABLET (FP) PO SCH (10:29)
[2016-11-12] MEDS: NICOTINE 21 MG/24 HOURS TOPICAL PATCH TD SCH (10:29)
[2016-11-12] MEDS: cloNIDine HCL 0.1 MG TABLET PO SCH ×2 (10:29→22:23)
[2016-11-12 10:32] LABS: ALBUMIN 3.5 g/dl (3.4-5.0); ANION GAP 9 (8-16); CALCIUM 9.1 mg/dL (8.5-10.1); CO2 24 mmol/L (21-32); GLUCOSE,RANDOM 210 mg/dL (74-106); SGOT/AST 9 U/L (15-37)
[2016-11-12 10:40] LABS: ALK PHOS 74 U/L (45-117); BILIRUBIN,TOTAL 0.4 mg/dL (0.2-1.0); CREATININE 0.9 mg/dL (0.55-1.02); SGPT/ALT 21 U/L (12-78); TOT PROT 6.7 g/dl (6.4-8.2)
[2016-11-12] MEDS ORDERED: COLLOIDAL OATMEAL 1 BAR EACH TP PRN (10:53)
[2016-11-12] MEDS ORDERED: INSULIN (NOVOLOG) ASPART 100 UNITS/ML 10ML VIAL ONE (11:48)
--- NOTE | 2016-11-12 11:48 | PN ---
[facility] CIWA - CIWA Score Nausea/Vomitin Muscle Tremors: 3 Anxiety: 3 Agitation: 3 Paroxysmal Sweats: 1-Minimal Palms Moist Orientation: 0-Oriented Tacttile Disturbances: 1-Very Mild Itch/Numbness Auditory Disturbances: 1-Very Mild Visual Disturbances: 1-Very Mild Sensitivity Headache: 1-Very Mild CIWA-Ar Total Score: 17 S Progress Note (SOAP) Subjective: ALERT,IRRITABLE,ANXIOUS,INTERRUPTED SLEEP,TREMOR,INTERRUPTED SLEEP Objective: 11/12/16 11:45 Vital Signs Temperature 97.9 F 11/12/16 09:48 Pulse Rate 75 11/12/16 09:48 Respiratory Rate 18 11/12/16 09:48 Blood Pressure 145/54 11/12/16 09:48 O2 Sat by Pulse Oximetry (%) EKG NSR,LVH NO CHEST PAIN,NO SOB,NO DIZZINESS Laboratory Last Values WBC 7.4 K/mm3 (4.0-10.0) 11/12/16 06:00 RBC 3.95 M/mm3 (3.60-5.2) 11/12/16 06:00 Hgb 11.8 GM/dL (10.7-15.3) D 11/12/16 06:00 Hct 35.9 % (32.4-45.2) 11/12/16 06:00 MCV 90.8 fl (80-96) 11/12/16 06:00 MCH 29.8 pg (25.7-33.7) 11/12/16 06:00 MCHC 32.8 g/dl (32.0-36.0) 11/12/16 06:00 RDW 14.9 % (11.6-15.6) 11/12/16 06:00 Plt Count 294 K/MM3 (134-434) 11/12/16 06:00 MPV 10.6 fl (7.5-11.1) 11/12/16 06:00 Sodium 139 mmol/L (136-145) 11/12/16 06:00 Potassium 3.7 mmol/L (3.5-5.1) 11/12/16 06:00 Chloride 106 mmol/L (98-107) 11/12/16 06:00 Carbon Dioxide 24 mmol/L (21-32) 11/12/16 06:00 Anion Gap 9 (8-16) 11/12/16 06:00 BUN 16 mg/dL (7-18) 11/12/16 06:00 Creatinine 0.9 mg/dL (0.55-1.02) 11/12/16 06:00 Creat Clearance w eGFR > 60 (>60) 11/12/16 06:00 POC Glucometer 185 UNITS (()) 11/12/16 05:54 Random Glucose 210 mg/dL (74-106) H D 11/12/16 06:00 Calcium 9.1 mg/dL (8.5-10.1) 11/12/16 06:00 Total Bilirubin 0.4 mg/dL (0.2-1.0) D 11/12/16 06:00 AST 9 U/L (15-37) L 11/12/16 06:00 ALT 21 U/L (12-78) 11/12/16 06:00 Alkaline Phosphatase 74 U/L (45-117) 11/12/16 06:00 Total Protein 6.7 g/dl (6.4-8.2) 11/12/16 06:00 Albumin 3.5 g/dl (3.4-5.0) 11/12/16 06:00 Urine Color Yellow 11/11/16 15:00 Urine Appearance Cloudy 11/11/16 15:00 Urine pH 5.0 (5.0-8.0) 11/11/16 15:00 Ur Specific [place] >= 1.030 (1.005-1.025) H 11/11/16 15:00 Urine Protein Negative (NEGATIVE) 11/11/16 15:00 Urine Glucose (UA) Negative (NEGATIVE) 11/11/16 15:00 Urine Ketones Negative (NEGATIVE) 11/11/16 15:00 Urine Blood Negative (NEGATIVE) 11/11/16 15:00 Urine Nitrite Negative (NEGATIVE) 11/11/16 15:00 Urine Bilirubin Negative (NEGATIVE) 11/11/16 15:00 Urine Urobilinogen Negative mg/dL (0.2-1.0) 11/11/16 15:00 Ur Leukocyte Esterase Negative (NEGATIVE) 11/11/16 15:00 LABS PENDING Assessment: 11/12/16 11:47 WITHDRAWAL SYMPTOM Plan: CONTINUE DETOX
[2016-11-12 12:14] LABS: HIV 1 & 2 AB NEGATIVE; HIV 1 AGp24 NEGATIVE
--- NOTE | 2016-11-12 12:58 | EKG ---
Test Reason : Blood Pressure : / mmHG Vent. Rate : 082 BPM Atrial Rate : 082 BPM P-R Int : 166 ms QRS Dur : 088 ms QT Int : 406 ms P-R-T Axes : 062 003 024 degrees QTc Int : 474 ms NORMAL SINUS RHYTHM VOLTAGE CRITERIA FOR LEFT VENTRICULAR HYPERTROPHY ABNORMAL ECG WHEN COMPARED WITH ECG OF 13-MAY-2016 14:46, MINIMAL CRITERIA FOR SEPTAL INFARCT ARE NO LONGER PRESENT Confirmed by AFUA PURVIS, NOEMY ([id number]) on 11/12/2016 12:58:02 PM Referred By: Augustine Velazquez Confirmed By:NOEMY CAAL MD
[2016-11-12] MEDS: ATORVASTATIN CA 10 MG TABLET (FP) PO SCH (22:21)
[2016-11-12] MEDS: traZODone HCL 100 MG TABLET (FP) PO SCH (22:21)
[2016-11-12] MEDS: THIAMINE HCL 100 MG TABLET (FP) PO SCH ×2 (22:22→23:12)
[2016-11-13] MEDS: GABAPENTIN 100 MG CAPSULE (FP) PO SCH ×3 (05:55→22:28)
[2016-11-13] MEDS: chlordiazePOXIDE HCL 25 MG CAPSULE PO SCH ×2 (05:55→10:28)
[2016-11-13] MEDS ORDERED: INSULIN (NOVOLOG) ASPART 100 UNITS/ML 10ML VIAL ONE ×2 (06:39→11:34)
[2016-11-13] MEDS: metFORMIN HCL 500 MG TABLET (FP) PO SCH ×2 (06:46→17:30)
[2016-11-13] MEDS: glyBURIDE 2.5 MG TABLET (FP) PO SCH (06:47)
[2016-11-13] MEDS: INSULIN (NOVOLOG) ASPART 100 UNITS/ML 10ML VIAL SQ SCH ×3 (06:47→17:25)
--- NOTE | 2016-11-13 09:24 | PN ---
[facility] CIWA - CIWA Score Nausea/Vomitin Muscle Tremors: 3 Anxiety: 3 Agitation: 2 Paroxysmal Sweats: 1-Minimal Palms Moist Orientation: 0-Oriented Tacttile Disturbances: 1-Very Mild Itch/Numbness Auditory Disturbances: 1-Very Mild Visual Disturbances: 1-Very Mild Sensitivity Headache: 2-Mild CIWA-Ar Total Score: 17 BHS Progress Note (SOAP) Subjective: ALERT,IRRITABLE,ANXIOUS,INTERRUPTED SLEEP Objective: 11/13/16 09:23 Vital Signs Temperature 98 F 11/13/16 06:07 Pulse Rate 68 11/13/16 06:07 Respiratory Rate 18 11/13/16 06:07 Blood Pressure 141/83 11/13/16 06:07 O2 Sat by Pulse Oximetry (%) Laboratory Last Values WBC 7.4 K/mm3 (4.0-10.0) 11/12/16 06:00 RBC 3.95 M/mm3 (3.60-5.2) 11/12/16 06:00 Hgb 11.8 GM/dL (10.7-15.3) D 11/12/16 06:00 Hct 35.9 % (32.4-45.2) 11/12/16 06:00 MCV 90.8 fl (80-96) 11/12/16 06:00 MCH 29.8 pg (25.7-33.7) 11/12/16 06:00 MCHC 32.8 g/dl (32.0-36.0) 11/12/16 06:00 RDW 14.9 % (11.6-15.6) 11/12/16 06:00 Plt Count 294 K/MM3 (134-434) 11/12/16 06:00 MPV 10.6 fl (7.5-11.1) 11/12/16 06:00 Sodium 139 mmol/L (136-145) 11/12/16 06:00 Potassium 3.7 mmol/L (3.5-5.1) 11/12/16 06:00 Chloride 106 mmol/L (98-107) 11/12/16 06:00 Carbon Dioxide 24 mmol/L (21-32) 11/12/16 06:00 Anion Gap 9 (8-16) 11/12/16 06:00 BUN 16 mg/dL (7-18) 11/12/16 06:00 Creatinine 0.9 mg/dL (0.55-1.02) 11/12/16 06:00 Creat Clearance w eGFR > 60 (>60) 11/12/16 06:00 POC Glucometer 224 UNITS (()) 11/13/16 06:00 Random Glucose 210 mg/dL (74-106) H D 11/12/16 06:00 Calcium 9.1 mg/dL (8.5-10.1) 11/12/16 06:00 Total Bilirubin 0.4 mg/dL (0.2-1.0) D 11/12/16 06:00 AST 9 U/L (15-37) L 11/12/16 06:00 ALT 21 U/L (12-78) 11/12/16 06:00 Alkaline Phosphatase 74 U/L (45-117) 11/12/16 06:00 Total Protein 6.7 g/dl (6.4-8.2) 11/12/16 06:00 Albumin 3.5 g/dl (3.4-5.0) 11/12/16 06:00 Urine Color Yellow 11/11/16 15:00 Urine Appearance Cloudy 11/11/16 15:00 Urine pH 5.0 (5.0-8.0) 11/11/16 15:00 Ur Specific [place] >= 1.030 (1.005-1.025) H 11/11/16 15:00 Urine Protein Negative (NEGATIVE) 11/11/16 15:00 Urine Glucose (UA) Negative (NEGATIVE) 11/11/16 15:00 Urine Ketones Negative (NEGATIVE) 11/11/16 15:00 Urine Blood Negative (NEGATIVE) 11/11/16 15:00 Urine Nitrite Negative (NEGATIVE) 11/11/16 15:00 Urine Bilirubin Negative (NEGATIVE) 11/11/16 15:00 Urine Urobilinogen Negative mg/dL (0.2-1.0) 11/11/16 15:00 Ur Leukocyte Esterase Negative (NEGATIVE) 11/11/16 15:00 HIV 1&2 Antibody Screen Negative 11/11/16 08:00 HIV P24 Antigen Negative 11/11/16 08:00 Assessment: 11/13/16 09:23 WITHDRAWAL SYMPTOM Plan: CONTINUE DETOX
[2016-11-13] MEDS: cloNIDine HCL 0.1 MG TABLET PO SCH ×2 (10:28→23:09)
[2016-11-13] MEDS: PRENATAL VITAMINS W/ FOLIC ACID TABLET (FP) PO SCH (10:28)
[2016-11-13] MEDS: NICOTINE 21 MG/24 HOURS TOPICAL PATCH TD SCH (11:35)
[2016-11-13] MEDS: chlordiazePOXIDE 5 MG CAPSULE PO SCH ×2 (17:55→23:09)
[2016-11-13] MEDS: ATORVASTATIN CA 10 MG TABLET (FP) PO SCH (22:28)
[2016-11-13] MEDS: traZODone HCL 100 MG TABLET (FP) PO SCH (22:29)
[2016-11-13] MEDS: THIAMINE HCL 100 MG TABLET (FP) PO SCH (22:29)
[2016-11-14] MEDS: chlordiazePOXIDE 5 MG CAPSULE PO SCH ×2 (05:54→10:29)
[2016-11-14] MEDS: GABAPENTIN 100 MG CAPSULE (FP) PO SCH ×3 (05:55→22:29)
[2016-11-14] MEDS: glyBURIDE 2.5 MG TABLET (FP) PO SCH (06:40)
[2016-11-14] MEDS ORDERED: INSULIN (NOVOLOG) ASPART 100 UNITS/ML 10ML VIAL ONE ×3 (06:44→17:16)
[2016-11-14] MEDS: metFORMIN HCL 500 MG TABLET (FP) PO SCH ×2 (06:44→17:23)
[2016-11-14] MEDS: INSULIN (NOVOLOG) ASPART 100 UNITS/ML 10ML VIAL SQ SCH ×3 (06:45→17:24)
[2016-11-14] MEDS: cloNIDine HCL 0.1 MG TABLET PO SCH ×2 (10:28→22:29)
[2016-11-14] MEDS: PRENATAL VITAMINS W/ FOLIC ACID TABLET (FP) PO SCH (10:29)
[2016-11-14] MEDS: NICOTINE 21 MG/24 HOURS TOPICAL PATCH TD SCH (10:29)
--- NOTE | 2016-11-14 11:22 | PN ---
S Progress Note (SOAP) Subjective: ALERT,IRRITABLE,ANXIOUS,INTERRUPTED SLEEP Objective: 11/14/16 11:21 Vital Signs Temperature 98.1 F 11/14/16 10:10 Pulse Rate 81 11/14/16 10:10 Respiratory Rate 18 11/14/16 10:10 Blood Pressure 118/74 11/14/16 10:10 O2 Sat by Pulse Oximetry (%) Assessment: 11/14/16 11:22 WITHDRAWAL SYMPTOM Plan: CONTINUE DETOX,DISCHARGE IN AM
[2016-11-14] MEDS: chlordiazePOXIDE HCL 10 MG CAPSULE PO SCH ×2 (17:24→22:29)
[2016-11-14] MEDS: THIAMINE HCL 100 MG TABLET (FP) PO SCH (22:29)
[2016-11-14] MEDS: ATORVASTATIN CA 10 MG TABLET (FP) PO SCH (22:29)
[2016-11-14] MEDS: traZODone HCL 100 MG TABLET (FP) PO SCH (22:29)
[2016-11-15] MEDS: metFORMIN HCL 500 MG TABLET (FP) PO SCH (06:54)
[2016-11-15] MEDS: GABAPENTIN 100 MG CAPSULE (FP) PO SCH (06:54)
[2016-11-15] MEDS: glyBURIDE 2.5 MG TABLET (FP) PO SCH (06:54)
[2016-11-15] MEDS: chlordiazePOXIDE HCL 10 MG CAPSULE PO SCH ×2 (06:54→10:39)
[2016-11-15] MEDS ORDERED: INSULIN (NOVOLOG) ASPART 100 UNITS/ML 10ML VIAL ONE (06:58)
[2016-11-15] MEDS: INSULIN (NOVOLOG) ASPART 100 UNITS/ML 10ML VIAL SQ SCH ×2 (06:59→11:39)
[2016-11-15 10:28] VITALS: BP 112/74; PULSE 79; TEMP 97.3
[2016-11-15] MEDS: PRENATAL VITAMINS W/ FOLIC ACID TABLET (FP) PO SCH (10:37)
[2016-11-15] MEDS: cloNIDine HCL 0.1 MG TABLET PO SCH (10:37)
[2016-11-15] MEDS: NICOTINE 21 MG/24 HOURS TOPICAL PATCH TD SCH (10:39)
--- NOTE | 2016-11-15 13:03 | DS ---
[facility] Detox Discharge Summary Admission Date: 11/11/16 Discharge Date: 11/15/16 - History Present History: Alcohol Dependence, Cocaine Dependence Additional Comments: asthma hypertension hypercholesterolemia type 2 dm ambulatory with cane - Physical Exam Results Vital Signs: Vital Signs Temperature 97.3 F L 11/15/16 10:00 Pulse Rate 79 11/15/16 10:00 Respiratory Rate 18 11/15/16 10:00 Blood Pressure 112/74 11/15/16 10:00 O2 Sat by Pulse Oximetry (%) Pertinent Admission Physical Exam Findings: withdrawal symptom - Treatment Hospital Course: Detox Protocol Followed, Detoxed Safely, Responded well, Discharged Condition Good Patient has Accepted a Rehab Referral to: [facility] - Medication Discharge Medications: Ambulatory Orders Glyburide [Diabeta -] 2.5 mg PO DAILY@0700 05/13/16 Metformin HCl [Glucophage] 1,000 mg PO BID 05/13/16 Albuterol Sulfate Inhaler - [Ventolin Hfa Inhaler -] 2 inh PO Q4H PRN 11/11/16 Atorvastatin Calcium [Lipitor] 10 mg PO HS 11/11/16 Buspirone HCl [Buspar -] 10 mg PO BID 11/11/16 Clonidine HCl [Catapres -] 0.1 mg PO BID 11/11/16 Gabapentin [Neurontin -] 100 mg PO Q8H 11/11/16 Insulin (Novolog) [Novolog] 0 units SQ TID PRN 11/11/16 Trazodone HCl [Desyrel -] 100 mg PO HS PRN 11/11/16 Buspirone HCl [Buspar -] 15 mg PO BID #60 tablet 11/12/16 Trazodone HCl [Desyrel -] 300 mg PO HS #30 tablet 11/12/16 - Diagnosis (1) Alcohol dependence with uncomplicated withdrawal Current Visit: No Status: Acute (2) Cocaine dependence, uncomplicated Current Visit: No Status: Acute (3) History of asthma Current Visit: No Status: Chronic (4) Insomnia Current Visit: No Status: Chronic (5) Post traumatic stress disorder (PTSD) Current Visit: No Status: Chronic (6) Type 2 diabetes mellitus Current Visit: No Status: Chronic Qualifiers: Diabetes mellitus complication status: without complication (7) Bipolar disorder Current Visit: Yes Status: Acute (8) Hypertension Current Visit: Yes Status: Acute (9) Hypercholesterolemia Current Visit: Yes Status: Acute (10) Laceration of left upper arm Current Visit: Yes Status: Acute (11) Use of cane as ambulatory aid Current Visit: Yes Status: Acute - AMA Did Patient Leave Against Medical Advice: No
== END 2016-11-15 12:26 | disposition home or self-care (01) | DRG 774 ==
LOC: YASAS 11:08 → Y6N 14:52
PROVIDERS: ADMIT Internal Medicine; ATTEND Internal Medicine
PROC: HZ2ZZZZ Detoxification Services for Substance Abuse Treatment (ICD-10-PCS; principal; 2016-11-15)
DX: F10.230 Alcohol dependence with withdrawal, uncomplicated (principal); F14.10 Cocaine abuse, uncomplicated; F34.1 Dysthymic disorder; F31.9 Bipolar disorder, unspecified; F19.24 Other psychoactive substance dependence with psychoactive substance-induced mood disorder; G47.00 Insomnia, unspecified; I10 Essential (primary) hypertension; E11.9 Type 2 diabetes mellitus without complications; Z79.4 Long term (current) use of insulin; Z79.84 Long term (current) use of oral hypoglycemic drugs; E78.00 Pure hypercholesterolemia, unspecified
CPT/HCPCS: 36415; 80053; 81003; 85027; 86593; 87389; 93005; 93010

== ENCOUNTER 2017-08-31 12:12 | Inpatient (IN) | payer OTHER ==
[2017-08-31 14:37] VITALS: BMI 32.9
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
[2017-08-31] MEDS ORDERED: P-EPHED 60MG/TRIPROLIDI 2.5MG TABLET PO PRN (17:22)
[2017-08-31] MEDS ORDERED: MAGNESIUM CITRATE 300 ML BOTTLE PO PRN (17:22)
[2017-08-31] MEDS ORDERED: MAG HYDROX/AL HYDROX/SIMETH 30 ML UNIT-DOSE CUP PO PRN (17:22)
[2017-08-31] MEDS ORDERED: guaiFENesin/D-METHORPHAN HB 10 ML UNIT-DOSE CUPS PO PRN (17:22)
[2017-08-31] MEDS ORDERED: hydrOXYzine PAMOATE 50 MG CAPSULE (FP) PO PRN (17:22)
[2017-08-31] MEDS ORDERED: NICOTINE POLACRILEX 2 MG GUM BC PRN (17:22)
[2017-08-31] MEDS ORDERED: IBUPROFEN 400 MG TABLET (FP) PO PRN (17:22)
[2017-08-31] MEDS ORDERED: MENTHOL/PHENOL 1 EACH UD MM PRN (17:22)
[2017-08-31] MEDS ORDERED: LOPERAMIDE HCL 2 MG CAPSULE PO PRN (17:22)
[2017-08-31] MEDS ORDERED: MAGNESIUM HYDROX 2400MG/30ML ORAL SUSPENSION 30 ML CUP PO PRN (17:22)
[2017-08-31] MEDS ORDERED: ACETAMINOPHEN 325 MG TABLET (FP) PO PRN (17:22)
[2017-08-31] MEDS ORDERED: ALBUTEROL SO4 18 GM HFA INHALER IH PRN (17:25)
[2017-08-31] MEDS ORDERED: chlordiazePOXIDE HCL 25 MG CAPSULE PO PRN (17:28)
[2017-08-31] MEDS ORDERED: chlordiazePOXIDE HCL 25 MG CAPSULE PO ONE (18:00)
[2017-08-31] MEDS ORDERED: MELATONIN 5 MG TABLETS PO PRN (22:00)
[2017-08-31] MEDS: GABAPENTIN 300 MG CAPSULE (FP) PO SCH (22:41)
[2017-08-31] MEDS: THIAMINE HCL 100 MG TABLET (FP) PO SCH (22:41)
[2017-08-31] MEDS: cloNIDine HCL 0.1 MG TABLET PO SCH (22:41)
[2017-08-31] MEDS: chlordiazePOXIDE HCL 25 MG CAPSULE PO SCH (22:41)
[2017-08-31 23:24] LABS: URINE APPEARANCE SLCLOUDY; URINE BILIRUBIN NEGATIVE (<2.0 mg/dL); URINE BLOOD NEGATIVE (NEGATIVE); URINE COLOR YELLOW; URINE GLUCOSE (UA) NEGATIVE (NEGATIVE); URINE KETONE NEGATIVE (NEGATIVE); URINE LEUK ESTERASE NEGATIVE (NEGATIVE); URINE NITRITE NEGATIVE (NEGATIVE); URINE PROTEIN NEGATIVE (NEGATIVE)
[2017-09-01] MEDS: metFORMIN HCL 500 MG TABLET (FP) PO SCH ×2 (06:52→17:21)
[2017-09-01] MEDS: GABAPENTIN 300 MG CAPSULE (FP) PO SCH ×3 (06:53→22:23)
[2017-09-01] MEDS: chlordiazePOXIDE HCL 25 MG CAPSULE PO SCH ×4 (06:53→22:23)
[2017-09-01] MEDS: glyBURIDE 2.5 MG TABLET (FP) PO SCH (06:54)
[2017-09-01] MEDS ORDERED: INSULIN SLIDING SCALE (NOVOLOG) 1 VIAL SQ SCH (07:00)
--- NOTE | 2017-09-01 08:49 | CONSULT ---
[facility] Psychiatric Consult - Data Date of interview: 09/01/17 Admission source: [facility] Identifying data: Patient is a 47 year old single female, mother of three, unemployed, living in a [place] [facility] [place], and supported by pul assistance. This is one of multiple admissions for patient. Pt. admitted to for alcohol, marijuana, and cocaine dependence. Substance Abuse History: Smoking Cessation. Smoking history: Current every day smoker. Have you smoked in the past 12 months: Yes. Aproximately how many cigarettes per day: 20. Cigars Per Day: 0. Hx Chewing Tobacco Use: No. Initiated information on smoking cessation: Yes. 'Breaking Loose' booklet given : 08/31/17. - Substance & Tx. History. Hx Alcohol Use: Yes. Hx Substance Use : Yes. Substance Use Type: Alcohol, Cocaine, Marijuana. Hx Substance Use Treatment: Yes (Last detox 05/2017). - Substances Abused. Alcohol. Route: Oral. Frequency: Daily. Amount used: 1-2 FIFTHS VODKA. Age of first use: 16. Date of Last Use: 08/31/17. Cocaine. Route: Smoking. Frequency: Daily. Amount used: $100. Age of first use: 32. Date of Last Use: 08/31/17. Marijuana/Hashish. Route: Smoking. Frequency: 1-2 times per week. Amount used : $25. Age of first use: 16. Date of Last Use: 08/30/17 Medical History: asthma, hypertension, seizures (ETOH related most recently last year), Diabetes, hysterectomy Psychiatric History: Patient denies h/o psychiatric hospitalization. OPD is provided at [facility] but reports not seeing her psychiatrist in several months. Pt. also reports no medications in several months. Patient was in rehab on 3E on May of 2017 and was prescribed buspar 30mg BID, trazodone 150mg qhs + Gabapentin 300mg TID. Pt. became quickly irritable and walked out of the office when she was made aware that her medications will be lowered due to nonadherence to medications. Patient denies h/o suicide attempt. Physical/Sexual Abuse/Trauma History: Denies. Mental Status Exam - Mental Status Exam Alert and Oriented to: Time, Place, Person Cognitive Function: Good Patient Appearance: Unkempt Mood: Irritable Affect: Mood Congruent Patient Behavior: Fatigued, Agitated Speech Pattern: Delayed Voice Loudness: Normal Thought Process: Intact, Goal Oriented Thought Disorder: Not Present Hallucinations: Denies Suicidal Ideation: Denies Homicidal Ideation: Denies Insight/Judgement: Poor Sleep: Fair Appetite: Fair Muscle strength/Tone: Normal Gait/Station: Normal Psychiatric Findings - Problem List ([place] 1, 2,3) (1) Alcohol dependence with uncomplicated withdrawal Current Visit: Yes Status: Acute (2) Cannabis dependence Current Visit: Yes Status: Chronic (3) Cocaine dependence, uncomplicated Current Visit: Yes Status: Chronic (4) Nicotine dependence Current Visit: Yes Status: Chronic Qualifiers: Nicotine product type: cigarettes Substance use status: uncomplicated Qualified Code(s): F17.210 - Nicotine dependence, cigarettes, uncomplicated (5) Substance induced mood disorder Current Visit: Yes Status: Acute - Initial Treatment Plan Initial Treatment Plan: Psychoeducation provided. At this time no medications will be initiated until patient gives consent. Pt. became irritable and walked out of office after being made aware that her medication regime will be lowered due to her h/o noncompliance.
[2017-09-01 10:16] LABS: HEMATOCRIT 37.8 % (32.4-45.2); HEMOGLOBIN 12.7 GM/dL (10.7-15.3); MCH 30.4 pg (25.7-33.7); MCHC 33.6 g/dl (32.0-36.0); MEAN CELL VOLUME 90.6 fl (80-96); MEAN PLT VOLUME 9.5 fl (7.5-11.1); PLATELET COUNT 316 K/MM3 (134-434); RBC 4.17 M/mm3 (3.60-5.2); RDW 14.6 % (11.6-15.6); WHITE BLOOD COUNT 5.1 K/mm3 (4.0-10.0)
[2017-09-01 10:21] LABS: CHLORIDE 104 mmol/L (98-107); POTASSIUM 3.9 mmol/L (3.5-5.1); SODIUM 137 mmol/L (136-145)
[2017-09-01] MEDS: LISINOPRIL 5 MG TABLET (FP) PO SCH (10:25)
[2017-09-01] MEDS: cloNIDine HCL 0.1 MG TABLET PO SCH ×2 (10:25→22:23)
[2017-09-01] MEDS: PRENATAL VITAMINS W/ FOLIC ACID TABLET (FP) PO SCH (10:25)
[2017-09-01] MEDS: NICOTINE 21 MG/24 HOURS TOPICAL PATCH TD SCH (10:27)
[2017-09-01 11:16] LABS: SICKLE CELL SCREEN NEGATIVE (NEGATIVE)
--- NOTE | 2017-09-01 11:42 | PN ---
S CIWA - CIWA Score Nausea/Vomitin-Mild Nausea/No Vomiting Muscle Tremors: 3 Anxiety: 3 Agitation: 3 Paroxysmal Sweats: 1-Minimal Palms Moist Orientation: 0-Oriented Tacttile Disturbances: 0-None Auditory Disturbances: 0-None Visual Disturbances: 0-None Headache: 0-None Present CIWA-Ar Total Score: 11 S Progress Note (SOAP) Subjective: sweat tremor trouble sleep at night anxiety restlessness Objective: 09/01/17 11:43 Vital Signs Temperature 96.5 F L 09/01/17 09:55 Pulse Rate 80 09/01/17 09:55 Respiratory Rate 20 09/01/17 09:55 Blood Pressure 149/98 09/01/17 09:55 O2 Sat by Pulse Oximetry (%) Laboratory Last Values WBC 5.1 K/mm3 (4.0-10.0) 09/01/17 07:20 RBC 4.17 M/mm3 (3.60-5.2) 09/01/17 07:20 Hgb 12.7 GM/dL (10.7-15.3) 09/01/17 07:20 Hct 37.8 % (32.4-45.2) 09/01/17 07:20 MCV 90.6 fl (80-96) 09/01/17 07:20 MCH 30.4 pg (25.7-33.7) 09/01/17 07:20 MCHC 33.6 g/dl (32.0-36.0) 09/01/17 07:20 RDW 14.6 % (11.6-15.6) 09/01/17 07:20 Plt Count 316 K/MM3 (134-434) 09/01/17 07:20 MPV 9.5 fl (7.5-11.1) 09/01/17 07:20 Sickle Cell Screen Negative (NEGATIVE) 09/01/17 07:20 Sodium 137 mmol/L (136-145) 09/01/17 07:20 Potassium 3.9 mmol/L (3.5-5.1) 09/01/17 07:20 Chloride 104 mmol/L (98-107) 09/01/17 07:20 POC Glucometer 157 UNITS (80-120) 09/01/17 06:51 Urine Color Yellow 08/31/17 22:30 Urine Appearance Slcloudy 08/31/17 22:30 Urine pH 5.0 (5.0-8.0) 08/31/17 22:30 Ur Specific [place] 1.024 (1.001-1.035) 08/31/17 22:30 Urine Protein Negative (NEGATIVE) 08/31/17 22:30 Urine Glucose (UA) Negative (NEGATIVE) 08/31/17 22:30 Urine Ketones Negative (NEGATIVE) 08/31/17 22:30 Urine Blood Negative (NEGATIVE) 08/31/17 22:30 Urine Nitrite Negative (NEGATIVE) 08/31/17 22:30 Urine Bilirubin Negative (<2.0 mg/dL) 08/31/17 22:30 Urine Urobilinogen 2.0 mg/dL (0.2-1.0) H 08/31/17 22:30 Ur Leukocyte Esterase Negative (NEGATIVE) 08/31/17 22:30 lab noted Assessment: 09/01/17 11:43 withdrawal sx Plan: continue detox
[2017-09-01 12:12] LABS: ALBUMIN 3.2 g/dl (3.4-5.0); ALK PHOS 69 U/L (45-117); ANION GAP 6 (8-16); BILIRUBIN,TOTAL 0.5 mg/dL (0.2-1.0); BLOOD UREA NITROGEN 13 mg/dL (7-18); CALCIUM 8.3 mg/dL (8.5-10.1); CO2 27 mmol/L (21-32); CREATININE 0.9 mg/dL (0.55-1.02); GLUCOSE,RANDOM 202 mg/dL (74-106); SGOT/AST 9 U/L (15-37); SGPT/ALT 18 U/L (12-78); TOT PROT 6.5 g/dl (6.4-8.2)
--- NOTE | 2017-09-01 12:24 | EKG ---
Test Reason : Blood Pressure : / mmHG Vent. Rate : 082 BPM Atrial Rate : 082 BPM P-R Int : 164 ms QRS Dur : 084 ms QT Int : 398 ms P-R-T Axes : 064 010 013 degrees QTc Int : 464 ms NORMAL SINUS RHYTHM MINIMAL VOLTAGE CRITERIA FOR LVH, MAY BE NORMAL VARIANT BORDERLINE ECG Confirmed by MD TITI, JOSE ([id number]) on 09/01/2017 12:24:47 PM Referred By: Confirmed By:JOSE WALLS MD
[2017-09-01] MEDS ORDERED: INSULIN (NOVOLOG) ASPART 100 UNITS/ML 10ML VIAL ONE (17:06)
[2017-09-01] MEDS: INSULIN SLIDING SCALE (NOVOLOG) 1 VIAL SQ SCH (17:22)
[2017-09-01] MEDS: THIAMINE HCL 100 MG TABLET (FP) PO SCH (22:23)
[2017-09-02] MEDS: GABAPENTIN 300 MG CAPSULE (FP) PO SCH ×3 (05:57→22:34)
[2017-09-02] MEDS: chlordiazePOXIDE HCL 25 MG CAPSULE PO SCH ×3 (05:57→17:36)
[2017-09-02] MEDS: metFORMIN HCL 500 MG TABLET (FP) PO SCH ×2 (06:41→17:37)
[2017-09-02] MEDS: glyBURIDE 2.5 MG TABLET (FP) PO SCH (06:42)
[2017-09-02] MEDS ORDERED: INSULIN (NOVOLOG) ASPART 100 UNITS/ML 10ML VIAL ONE ×2 (06:49→06:51)
[2017-09-02] MEDS: INSULIN SLIDING SCALE (NOVOLOG) 1 VIAL SQ SCH ×2 (07:38→16:33)
--- NOTE | 2017-09-02 09:37 | PN ---
S CIWA - CIWA Score Nausea/Vomitin-Mild Nausea/No Vomiting Muscle Tremors: 3 Anxiety: 2 Agitation: 2 Paroxysmal Sweats: 1-Minimal Palms Moist Orientation: 0-Oriented Tacttile Disturbances: 1-Very Mild Itch/Numbness Auditory Disturbances: 0-None Visual Disturbances: 0-None Headache: 0-None Present CIWA-Ar Total Score: 10 BHS Progress Note (SOAP) Subjective: SWEAT TREMOR ANXIETY RESTLESSNESS TROUBLE SLEEP AT NIGHT Objective: 09/02/17 09:38 Vital Signs Temperature 98.2 F 09/02/17 09:35 Pulse Rate 75 09/02/17 09:35 Respiratory Rate 16 09/02/17 09:35 Blood Pressure 98/47 09/02/17 09:35 O2 Sat by Pulse Oximetry (%) Laboratory Last Values WBC 5.1 K/mm3 (4.0-10.0) 09/01/17 07:20 RBC 4.17 M/mm3 (3.60-5.2) 09/01/17 07:20 Hgb 12.7 GM/dL (10.7-15.3) 09/01/17 07:20 Hct 37.8 % (32.4-45.2) 09/01/17 07:20 MCV 90.6 fl (80-96) 09/01/17 07:20 MCH 30.4 pg (25.7-33.7) 09/01/17 07:20 MCHC 33.6 g/dl (32.0-36.0) 09/01/17 07:20 RDW 14.6 % (11.6-15.6) 09/01/17 07:20 Plt Count 316 K/MM3 (134-434) 09/01/17 07:20 MPV 9.5 fl (7.5-11.1) 09/01/17 07:20 Sickle Cell Screen Negative (NEGATIVE) 09/01/17 07:20 Sodium 137 mmol/L (136-145) 09/01/17 07:20 Potassium 3.9 mmol/L (3.5-5.1) 09/01/17 07:20 Chloride 104 mmol/L (98-107) 09/01/17 07:20 Carbon Dioxide 27 mmol/L (21-32) 09/01/17 07:20 Anion Gap 6 (8-16) L 09/01/17 07:20 BUN 13 mg/dL (7-18) 09/01/17 07:20 Creatinine 0.9 mg/dL (0.55-1.02) 09/01/17 07:20 Creat Clearance w eGFR > 60 (>60) 09/01/17 07:20 POC Glucometer 220 UNITS (80-120) 09/02/17 05:56 Random Glucose 202 mg/dL (74-106) H 09/01/17 07:20 Calcium 8.3 mg/dL (8.5-10.1) L 09/01/17 07:20 Total Bilirubin 0.5 mg/dL (0.2-1.0) D 09/01/17 07:20 AST 9 U/L (15-37) L 09/01/17 07:20 ALT 18 U/L (12-78) 09/01/17 07:20 Alkaline Phosphatase 69 U/L (45-117) 09/01/17 07:20 Total Protein 6.5 g/dl (6.4-8.2) 09/01/17 07:20 Albumin 3.2 g/dl (3.4-5.0) L 09/01/17 07:20 Urine Color Yellow 08/31/17 22:30 Urine Appearance Slcloudy 08/31/17 22:30 Urine pH 5.0 (5.0-8.0) 08/31/17 22:30 Ur Specific [place] 1.024 (1.001-1.035) 08/31/17 22:30 Urine Protein Negative (NEGATIVE) 08/31/17 22:30 Urine Glucose (UA) Negative (NEGATIVE) 08/31/17 22:30 Urine Ketones Negative (NEGATIVE) 08/31/17 22:30 Urine Blood Negative (NEGATIVE) 08/31/17 22:30 Urine Nitrite Negative (NEGATIVE) 08/31/17 22:30 Urine Bilirubin Negative (<2.0 mg/dL) 08/31/17 22:30 Urine Urobilinogen 2.0 mg/dL (0.2-1.0) H 08/31/17 22:30 Ur Leukocyte Esterase Negative (NEGATIVE) 08/31/17 22:30 RPR Titer Nonreactive (NONREACTIVE) 09/01/17 07:20 LAB NOTED Assessment: 09/02/17 09:38 WITHDRAWAL SX NUTRITION Plan: CONTINUE DETOX DIETARY CONSULTATION
[2017-09-02] MEDS: PRENATAL VITAMINS W/ FOLIC ACID TABLET (FP) PO SCH (11:14)
[2017-09-02] MEDS: LISINOPRIL 5 MG TABLET (FP) PO SCH (11:14)
[2017-09-02] MEDS: cloNIDine HCL 0.1 MG TABLET PO SCH ×2 (11:14→22:34)
[2017-09-02] MEDS: NICOTINE 21 MG/24 HOURS TOPICAL PATCH TD SCH (11:15)
--- NOTE | 2017-09-02 16:49 | PN ---
Psychiatric Progress Note Vital Signs: Vital Signs Period Temp Pulse Resp BP Sys/Epperson Pulse Ox Last 24 Hr 97.7 F-98.4 F 71-80 16-20 97-141/47-94 Date of Session: 09/02/17 Chief Complaint:: [facility] HPI: Pt. admitted to for alcohol, marijuana, and cocaine dependence. ROS: asthma, hypertension, seizures (ETOH related most recently last year), Diabetes, hysterectomy Current Medications: Active Medications Generic Name Dose Route Start Last Admin Trade Name Freq PRN Reason Stop Dose Admin Acetaminophen 650 mg 08/31/17 17:22 Tylenol - PO Q4H PRN FEVER Al Hydroxide/Mg Hydroxide 30 ml 08/31/17 17:22 Mylanta Oral Suspension - PO Q6H PRN DYSPEPSIA Albuterol Sulfate 2 puff 08/31/17 17:25 Ventolin Hfa Inhaler - IH Q4H PRN ASTHMA Chlordiazepoxide HCl 25 mg 09/01/17 23:00 09/02/17 11:13 Librium - PO 09/02/17 17:01 25 mg [id number] JIMMY Administration Chlordiazepoxide HCl 15 mg 09/02/17 23:00 Librium - PO 09/03/17 17:01 [id number] JIMMY Chlordiazepoxide HCl 25 mg 08/31/17 17:28 Librium - PO 09/03/17 17:27 Q4H PRN WITHDRAWAL(CONT SUBST) Chlordiazepoxide HCl 10 mg 09/03/17 23:00 Librium - PO 09/04/17 17:01 S2O-CKR JIMMY Clonidine 0.1 mg 08/31/17 22:00 09/02/17 11:14 Catapres - PO 0.1 mg BID JIMMY Administration Eucalyptus/Menthol/Phenol/Sorbitol 1 each 08/31/17 17:22 Cepastat Lozenge - MM Q4H PRN SORE THROAT Gabapentin 300 mg 08/31/17 22:00 09/02/17 14:27 Neurontin - PO 300 mg TID JIMMY Administration Glyburide 2.5 mg 09/01/17 07:00 09/02/17 06:42 Diabeta - PO 2.5 mg DAILY@0700 JIMMY Administration Guaifenesin 10 ml 08/31/17 17:22 Robitussin Dm - PO Q6H PRN COUGH Hydroxyzine Pamoate 50 mg 08/31/17 17:22 Vistaril - PO Q4H PRN AGITATION Ibuprofen 400 mg 08/31/17 17:22 Motrin - PO Q6H PRN PAIN LEVEL 4-6 Insulin Aspart 1 vial 09/01/17 11:39 09/02/17 16:33 Novolog Vial Sliding Scale - SQ Not Given BIDAC [facility] Protocol Lisinopril 5 mg 09/01/17 10:00 09/02/17 11:14 Prinivil PO 5 mg DAILY JIMMY Administration Loperamide HCl 4 mg 08/31/17 17:22 Imodium - PO Q6H PRN DIARRHEA Magnesium Citrate 300 ml 08/31/17 17:22 Citroma - PO Q48H PRN CONSTIPATION Magnesium Hydroxide 30 ml 08/31/17 17:22 Milk Of Magnesia - PO DAILY PRN CONSTIPATION Melatonin 5 mg 08/31/17 22:00 Melatonin PO HS PRN INSOMNIA Metformin HCl 1,000 mg 09/01/17 07:00 09/02/17 06:41 Glucophage - PO 1,000 mg BID@0700,1630 JIMMY Administration Nicotine 21 mg 09/01/17 10:00 09/02/17 11:15 Nicoderm Patch - TD Not Given DAILY JIMMY Nicotine Polacrilex 2 mg 08/31/17 17:22 Nicorette Gum - BC Q2H PRN NICOTINE REPLACEMENT RX Multivit/Folic Acid/Iron 1 tab 09/01/17 10:00 09/02/17 11:14 Vitamins (Sjr) - PO 1 tab DAILY JIMMY Administration Pseudoephedrine/Triprolidine 1 combo 08/31/17 17:22 Actifed - PO TID PRN NASAL CONGESTION Thiamine HCl 100 mg 08/31/17 22:00 09/01/17 22:23 Vitamin B1 - PO 100 mg HS JIMMY Administration Medication(s) Change(s): Yes. Will resume buspar 15mg BID + trazodone 100mg. Current Side Effect: No Lab tests ordered: No Lab tests reviewed: Yes Provider note:: Thermoscrew Operator met with patient for psychiatric reconsultation. Pt. requesting to restart buspar and trazodone. Chart reviewed. Previous psychiatric notes read and appreciated. Patient was on 3E in May of 2017 and was prescribed buspar 30mg BID + trazodone 150mg qhs. Since discharge from rehab patient reports nonadherence to medication. Pt. agreeable to restarting Buspar 15mg BID + Trazodone 100mg qhs. Verbal consent given. Will continue to monitor. Total face to face time:: 25 Mental Status Exam - Mental Status Exam Alert and Oriented to: Time, Place, Person Cognitive Function: Good Patient Appearance: Well Groomed Mood: Hopeful Affect: Mood Congruent Patient Behavior: Appropriate, Cooperative Speech Pattern: Clear, Appropriate Voice Loudness: Normal Thought Process: Intact, Goal Oriented Thought Disorder: Not Present Hallucinations: Denies Suicidal Ideation: Denies Homicidal Ideation: Denies Insight/Judgement: Poor Sleep: Poorly Appetite: Fair Muscle strength/Tone: Normal Gait/Station: Other (Patient uses a cane to ambulate.) Psychiatric Treatment Plan - Problem List (1) Alcohol dependence with uncomplicated withdrawal Current Visit: Yes (2) Cannabis dependence Current Visit: Yes (3) Cocaine dependence, uncomplicated Current Visit: Yes (4) Nicotine dependence Current Visit: Yes Qualifiers: Nicotine product type: cigarettes Substance use status: uncomplicated Qualified Code(s): F17.210 - Nicotine dependence, cigarettes, uncomplicated (5) Substance induced mood disorder Current Visit: Yes (6) Substance-induced sleep disorder Current Visit: Yes
[2017-09-02] MEDS ORDERED: PATIENT'S OWN MEDICATION (NON-FORMULARY) (Trazodone Hcl [Trazodone Hcl] 100 MG) PO SCH (22:00)
[2017-09-02] MEDS: THIAMINE HCL 100 MG TABLET (FP) PO SCH (22:34)
[2017-09-02] MEDS: chlordiazePOXIDE 5 MG CAPSULE PO SCH (22:34)
[2017-09-02] MEDS: traZODone HCL 100 MG TABLET (FP) PO SCH (23:39)
[2017-09-03] MEDS: INSULIN SLIDING SCALE (NOVOLOG) 1 VIAL SQ SCH ×2 (09:01→17:54)
[2017-09-03] MEDS: metFORMIN HCL 500 MG TABLET (FP) PO SCH ×2 (09:25→17:50)
[2017-09-03] MEDS: glyBURIDE 2.5 MG TABLET (FP) PO SCH (09:25)
[2017-09-03] MEDS: GABAPENTIN 300 MG CAPSULE (FP) PO SCH ×3 (09:25→22:14)
[2017-09-03] MEDS: chlordiazePOXIDE 5 MG CAPSULE PO SCH ×3 (09:25→17:50)
--- NOTE | 2017-09-03 10:19 | PN ---
[facility] Progress Note (SOAP) Subjective: feeling better no tremor less sweat social with jpeers in day room Objective: 09/03/17 10:16 Vital Signs Temperature 98.1 F 09/03/17 09:16 Pulse Rate 79 09/03/17 09:16 Respiratory Rate 18 09/03/17 09:16 Blood Pressure 134/89 09/03/17 09:16 O2 Sat by Pulse Oximetry (%) Laboratory Last Values WBC 5.1 K/mm3 (4.0-10.0) 09/01/17 07:20 RBC 4.17 M/mm3 (3.60-5.2) 09/01/17 07:20 Hgb 12.7 GM/dL (10.7-15.3) 09/01/17 07:20 Hct 37.8 % (32.4-45.2) 09/01/17 07:20 MCV 90.6 fl (80-96) 09/01/17 07:20 MCH 30.4 pg (25.7-33.7) 09/01/17 07:20 MCHC 33.6 g/dl (32.0-36.0) 09/01/17 07:20 RDW 14.6 % (11.6-15.6) 09/01/17 07:20 Plt Count 316 K/MM3 (134-434) 09/01/17 07:20 MPV 9.5 fl (7.5-11.1) 09/01/17 07:20 Sickle Cell Screen Negative (NEGATIVE) 09/01/17 07:20 Sodium 137 mmol/L (136-145) 09/01/17 07:20 Potassium 3.9 mmol/L (3.5-5.1) 09/01/17 07:20 Chloride 104 mmol/L (98-107) 09/01/17 07:20 Carbon Dioxide 27 mmol/L (21-32) 09/01/17 07:20 Anion Gap 6 (8-16) L 09/01/17 07:20 BUN 13 mg/dL (7-18) 09/01/17 07:20 Creatinine 0.9 mg/dL (0.55-1.02) 09/01/17 07:20 Creat Clearance w eGFR > 60 (>60) 09/01/17 07:20 POC Glucometer 217 UNITS (80-120) 09/03/17 05:27 Random Glucose 202 mg/dL (74-106) H 09/01/17 07:20 Calcium 8.3 mg/dL (8.5-10.1) L 09/01/17 07:20 Total Bilirubin 0.5 mg/dL (0.2-1.0) D 09/01/17 07:20 AST 9 U/L (15-37) L 09/01/17 07:20 ALT 18 U/L (12-78) 09/01/17 07:20 Alkaline Phosphatase 69 U/L (45-117) 09/01/17 07:20 Total Protein 6.5 g/dl (6.4-8.2) 09/01/17 07:20 Albumin 3.2 g/dl (3.4-5.0) L 09/01/17 07:20 Urine Color Yellow 08/31/17 22:30 Urine Appearance Slcloudy 08/31/17 22:30 Urine pH 5.0 (5.0-8.0) 08/31/17 22:30 Ur Specific [place] 1.024 (1.001-1.035) 08/31/17 22:30 Urine Protein Negative (NEGATIVE) 08/31/17 22:30 Urine Glucose (UA) Negative (NEGATIVE) 08/31/17 22:30 Urine Ketones Negative (NEGATIVE) 08/31/17 22:30 Urine Blood Negative (NEGATIVE) 08/31/17 22:30 Urine Nitrite Negative (NEGATIVE) 08/31/17 22:30 Urine Bilirubin Negative (<2.0 mg/dL) 08/31/17 22:30 Urine Urobilinogen 2.0 mg/dL (0.2-1.0) H 08/31/17 22:30 Ur Leukocyte Esterase Negative (NEGATIVE) 08/31/17 22:30 RPR Titer Nonreactive (NONREACTIVE) 09/01/17 07:20 lab noted Assessment: 09/03/17 10:18 mild withdrawal sx Plan: medically supervised detox
[2017-09-03] MEDS: PRENATAL VITAMINS W/ FOLIC ACID TABLET (FP) PO SCH (10:47)
[2017-09-03] MEDS: cloNIDine HCL 0.1 MG TABLET PO SCH ×2 (10:47→22:14)
[2017-09-03] MEDS: LISINOPRIL 5 MG TABLET (FP) PO SCH (10:47)
[2017-09-03] MEDS: NICOTINE 21 MG/24 HOURS TOPICAL PATCH TD SCH (10:48)
[2017-09-03] MEDS ORDERED: INSULIN (NOVOLOG) ASPART 100 UNITS/ML 10ML VIAL ONE (17:40)
[2017-09-03] MEDS: traZODone HCL 100 MG TABLET (FP) PO SCH (22:14)
[2017-09-03] MEDS: chlordiazePOXIDE HCL 10 MG CAPSULE PO SCH (22:14)
[2017-09-03] MEDS: THIAMINE HCL 100 MG TABLET (FP) PO SCH (22:14)
[2017-09-04] MEDS: chlordiazePOXIDE HCL 10 MG CAPSULE PO SCH (06:08)
[2017-09-04] MEDS: metFORMIN HCL 500 MG TABLET (FP) PO SCH (06:09)
[2017-09-04] MEDS: GABAPENTIN 300 MG CAPSULE (FP) PO SCH (06:09)
[2017-09-04] MEDS: glyBURIDE 2.5 MG TABLET (FP) PO SCH (06:09)
[2017-09-04 07:20] VITALS: PULSE 85
[2017-09-04] MEDS ORDERED: INSULIN (NOVOLOG) ASPART 100 UNITS/ML 10ML VIAL ONE (07:39)
[2017-09-04] MEDS: INSULIN SLIDING SCALE (NOVOLOG) 1 VIAL SQ SCH (07:42)
[2017-09-04] MEDS: PRENATAL VITAMINS W/ FOLIC ACID TABLET (FP) PO SCH (09:20)
[2017-09-04] MEDS: LISINOPRIL 5 MG TABLET (FP) PO SCH (09:20)
[2017-09-04] MEDS: cloNIDine HCL 0.1 MG TABLET PO SCH (09:20)
[2017-09-04] MEDS: NICOTINE 21 MG/24 HOURS TOPICAL PATCH TD SCH (09:21)
--- NOTE | 2017-09-04 09:33 | DS ---
[facility] Detox Discharge Summary Admission Date: 08/31/17 Discharge Date: 09/04/17 - History Present History: Alcohol Dependence Additional Comments: DETOX COMPLETED. ALERT O X 3. Pertinent Past History: PLEASE SEE DX BELOW - Physical Exam Results Vital Signs: Vital Signs Temperature 97.9 F 09/04/17 07:20 Pulse Rate 85 09/04/17 07:20 Respiratory Rate 20 09/04/17 07:20 Blood Pressure 124/90 09/04/17 07:20 O2 Sat by Pulse Oximetry (%) Pertinent Admission Physical Exam Findings: WITHDRAWAL SX Laboratory Tests 08/31/17 08/31/17 09/01/17 17:09 22:30 06:51 WBC RBC Hgb Hct MCV MCH MCHC RDW Plt Count MPV Sickle Cell Screen Sodium Potassium Chloride Carbon Dioxide Anion Gap BUN Creatinine Creat Clearance w eGFR POC Glucometer 190 157 Random Glucose Calcium Total Bilirubin AST ALT Alkaline Phosphatase Total Protein Albumin Urine Color Yellow Urine Appearance Slcloudy Urine pH 5.0 Ur Specific [place] 1.024 Urine Protein Negative Urine Glucose (UA) Negative Urine Ketones Negative Urine Blood Negative Urine Nitrite Negative Urine Bilirubin Negative Urine Urobilinogen 2.0 H Ur Leukocyte Esterase Negative RPR Titer 09/01/17 09/01/17 09/01/17 07:20 07:20 07:20 WBC 5.1 RBC 4.17 Hgb 12.7 Hct 37.8 MCV 90.6 MCH 30.4 MCHC 33.6 RDW 14.6 Plt Count 316 MPV 9.5 Sickle Cell Screen Negative Sodium 137 Potassium 3.9 Chloride 104 Carbon Dioxide 27 Anion Gap 6 L BUN 13 Creatinine 0.9 Creat Clearance w eGFR > 60 POC Glucometer Random Glucose 202 H Calcium 8.3 L Total Bilirubin 0.5 D AST 9 L ALT 18 Alkaline Phosphatase 69 Total Protein 6.5 Albumin 3.2 L Urine Color Urine Appearance Urine pH Ur Specific [place] Urine Protein Urine Glucose (UA) Urine Ketones Urine Blood Urine Nitrite Urine Bilirubin Urine Urobilinogen Ur Leukocyte Esterase RPR Titer Nonreactive 09/01/17 09/02/17 09/02/17 16:30 05:56 16:29 WBC RBC Hgb Hct MCV MCH MCHC RDW Plt Count MPV Sickle Cell Screen Sodium Potassium Chloride Carbon Dioxide Anion Gap BUN Creatinine Creat Clearance w eGFR POC Glucometer 238 220 117 Random Glucose Calcium Total Bilirubin AST ALT Alkaline Phosphatase Total Protein Albumin Urine Color Urine Appearance Urine pH Ur Specific [place] Urine Protein Urine Glucose (UA) Urine Ketones Urine Blood Urine Nitrite Urine Bilirubin Urine Urobilinogen Ur Leukocyte Esterase RPR Titer 09/03/17 09/03/17 09/04/17 05:27 16:30 06:07 WBC RBC Hgb Hct MCV MCH MCHC RDW Plt Count MPV Sickle Cell Screen Sodium Potassium Chloride Carbon Dioxide Anion Gap BUN Creatinine Creat Clearance w eGFR POC Glucometer 217 266 247 Random Glucose Calcium Total Bilirubin AST ALT Alkaline Phosphatase Total Protein Albumin Urine Color Urine Appearance Urine pH Ur Specific [place] Urine Protein Urine Glucose (UA) Urine Ketones Urine Blood Urine Nitrite Urine Bilirubin Urine Urobilinogen Ur Leukocyte Esterase RPR Titer - Treatment Hospital Course: Detox Protocol Followed, Detoxed Safely, Responded well, Discharged Condition Good - Medication Discharge Medications: Ambulatory Orders Insulin Sliding Scale [Novolog Vial Sliding Scale -] 1 vial SQ BIDAC PRN 30 Days #1 vial 06/11/17 cloNIDine HCL [Catapres -] 0.1 mg PO BID #60 tablet 06/11/17 Buspirone HCl [Buspar -] 30 mg PO BID #60 tablet 06/12/17 Trazodone HCl 300 mg PO HS 08/31/17 Albuterol Sulfate Inhaler - [Ventolin HFA Inhaler -] 2 inh PO Q4H PRN #1 inhaler 09/03/17 Gabapentin [Neurontin -] 300 mg PO TID #90 capsule 09/03/17 Glyburide [Micronase -] 2.5 mg PO DAILY@0700 #30 tablet 09/03/17 Lisinopril 5 mg PO DAILY #30 tablet 09/03/17 Metformin HCl [Glucophage] 1,000 mg PO BID #60 tablet 09/03/17 - Diagnosis (1) Acid reflux Status: Acute (2) Alcohol dependence with uncomplicated withdrawal Status: Acute (3) Alcohol related seizure Status: Acute (4) Frequent falls Status: Acute (5) Nicotine dependence Status: Acute Qualifiers: Nicotine product type: cigarettes Substance use status: in withdrawal Qualified Code(s): F17.213 - Nicotine dependence, cigarettes, with withdrawal (6) Arthritis of right knee Status: Chronic (7) Cannabis dependence Status: Chronic (8) Cocaine dependence, uncomplicated Status: Chronic (9) History of asthma Status: Chronic (10) Hypercholesterolemia Status: Chronic (11) Hypertension Status: Chronic Qualifiers: Hypertension type: essential hypertension Qualified Code(s): I10 - Essential (primary) hypertension (12) Type 2 diabetes mellitus Status: Chronic Qualifiers: Diabetes mellitus complication status: without complication (13) Use of cane as ambulatory aid Status: Chronic - AMA Did Patient Leave Against Medical Advice: No
--- NOTE | 2017-09-04 09:36 | PN ---
[facility] Progress Note (SOAP) Subjective: DETOX COMPLETED. ALERT O X 3. AMBULATING WITH STEADY GAIT. Objective: 09/04/17 09:35 Vital Signs 09/04/17 09/04/17 03:30 07:20 Temperature 97.9 F Pulse Rate 85 Respiratory 16 20 Rate Blood Pressure 124/90 Laboratory Tests 08/31/17 08/31/17 09/01/17 17:09 22:30 06:51 WBC RBC Hgb Hct MCV MCH MCHC RDW Plt Count MPV Sickle Cell Screen Sodium Potassium Chloride Carbon Dioxide Anion Gap BUN Creatinine Creat Clearance w eGFR POC Glucometer 190 157 Random Glucose Calcium Total Bilirubin AST ALT Alkaline Phosphatase Total Protein Albumin Urine Color Yellow Urine Appearance Slcloudy Urine pH 5.0 Ur Specific [place] 1.024 Urine Protein Negative Urine Glucose (UA) Negative Urine Ketones Negative Urine Blood Negative Urine Nitrite Negative Urine Bilirubin Negative Urine Urobilinogen 2.0 H Ur Leukocyte Esterase Negative RPR Titer 09/01/17 09/01/17 09/01/17 07:20 07:20 07:20 WBC 5.1 RBC 4.17 Hgb 12.7 Hct 37.8 MCV 90.6 MCH 30.4 MCHC 33.6 RDW 14.6 Plt Count 316 MPV 9.5 Sickle Cell Screen Negative Sodium 137 Potassium 3.9 Chloride 104 Carbon Dioxide 27 Anion Gap 6 L BUN 13 Creatinine 0.9 Creat Clearance w eGFR > 60 POC Glucometer Random Glucose 202 H Calcium 8.3 L Total Bilirubin 0.5 D AST 9 L ALT 18 Alkaline Phosphatase 69 Total Protein 6.5 Albumin 3.2 L Urine Color Urine Appearance Urine pH Ur Specific [place] Urine Protein Urine Glucose (UA) Urine Ketones Urine Blood Urine Nitrite Urine Bilirubin Urine Urobilinogen Ur Leukocyte Esterase RPR Titer Nonreactive 09/01/17 09/02/17 09/02/17 16:30 05:56 16:29 WBC RBC Hgb Hct MCV MCH MCHC RDW Plt Count MPV Sickle Cell Screen Sodium Potassium Chloride Carbon Dioxide Anion Gap BUN Creatinine Creat Clearance w eGFR POC Glucometer 238 220 117 Random Glucose Calcium Total Bilirubin AST ALT Alkaline Phosphatase Total Protein Albumin Urine Color Urine Appearance Urine pH Ur Specific [place] Urine Protein Urine Glucose (UA) Urine Ketones Urine Blood Urine Nitrite Urine Bilirubin Urine Urobilinogen Ur Leukocyte Esterase RPR Titer 09/03/17 09/03/17 09/04/17 05:27 16:30 06:07 WBC RBC Hgb Hct MCV MCH MCHC RDW Plt Count MPV Sickle Cell Screen Sodium Potassium Chloride Carbon Dioxide Anion Gap BUN Creatinine Creat Clearance w eGFR POC Glucometer 217 266 247 Random Glucose Calcium Total Bilirubin AST ALT Alkaline Phosphatase Total Protein Albumin Urine Color Urine Appearance Urine pH Ur Specific [place] Urine Protein Urine Glucose (UA) Urine Ketones Urine Blood Urine Nitrite Urine Bilirubin Urine Urobilinogen Ur Leukocyte Esterase RPR Titer Assessment: 09/04/17 09:36 MEDICALLY STABLE Plan: D/C PT TODAY
[2017-09-04 10:04] VITALS: BP 128/81; TEMP 98.6
== END 2017-09-04 09:31 | disposition home or self-care (01) | DRG 773 ==
LOC: YASAS 12:12 → Y6N 17:18
PROVIDERS: ADMIT Surgery; ATTEND Surgery
PROC: HZ2ZZZZ Detoxification Services for Substance Abuse Treatment (ICD-10-PCS; principal; 2017-08-31)
DX: F11.23 Opioid dependence with withdrawal (principal); F14.20 Cocaine dependence, uncomplicated; F12.20 Cannabis dependence, uncomplicated; F17.213 Nicotine dependence, cigarettes, with withdrawal; F31.9 Bipolar disorder, unspecified; F19.24 Other psychoactive substance dependence with psychoactive substance-induced mood disorder; F19.282 Other psychoactive substance dependence with psychoactive substance-induced sleep disorder; I10 Essential (primary) hypertension; J45.909 Unspecified asthma, uncomplicated; K21.9 Gastro-esophageal reflux disease without esophagitis; E78.00 Pure hypercholesterolemia, unspecified; E11.9 Type 2 diabetes mellitus without complications; M13.861 Other specified arthritis, right knee; R29.6 Repeated falls; R29.2 Abnormal reflex; Z99.89 Dependence on other enabling machines and devices; Z79.4 Long term (current) use of insulin; Z79.84 Long term (current) use of oral hypoglycemic drugs; Z86.69 Personal history of other diseases of the nervous system and sense organs
CPT/HCPCS: 36415; 80053; 81003; 82962; 85027; 85660; 86593; 93005; 93010; J0735